=== PATIENT | female | born 1975 ===

== ENCOUNTER 2020-09-23 19:35 | Emergency (ER) | payer OTHER, SELFPAY ==
[2020-09-23 19:36] VITALS: BP 223/95; PULSE 78; RESP 20; TEMP 36.5; O2SAT 100; BMI 62.1
--- NOTE | 2020-09-23 19:51 | PC.NURSE ---
Pt ambulating to the bathroom with a andrade/steady gait, assisted into [facility]. Pt reports compliance with antihypertensives despite elevated BP.
[2020-09-23 20:25] VITALS: BP 183/96; PULSE 78; RESP 16; TEMP 36.6; O2SAT 98
--- NOTE | 2020-09-23 21:10 | ED_ITS ---
HPI - Abdominal Pain General Chief Complaint: Abdominal Pain Stated Complaint: abd pain Time Seen by Provider: 09/23/20 21:10 Source: patient Mode of arrival: ambulatory Limitations: no limitations History of Present Illness HPI narrative: epigastric pain and throat pain. Patient had vomiting and diarrhea 2 days ago. Patient states that the abdominal pain started today MD elicited complaint: abdominal pain Onset (ago): day(s) Pain Consistency: constant Location: epigastric Severity: mild Quality: aching Exacerbating factors: movement Related Data Previous Rx's Medication Instructions Recorded pantoprazole [Protonix] 40 mg PO DAILY #30 ea 09/23/20 Allergies Allergy/AdvReac Type Severity Reaction Status Date / Time No Known Allergies Allergy Unverified 07/29/20 15:33 Review of Systems Constitutional: Reports no additional constitutional complaints Eyes: Reports no additional eye complaints Denies dizziness Cardiovascular: Reports no additional cardiovascular complaints Respiratory: Reports as per HPI Gastrointestinal: Reports no additional gastrointestinal complaints Genitourinary: Reports no additional female genitourinary complaints Musculoskeletal: Reports no additional musculoskeletal complaints Skin/Breast: Denies rash Reports system reviewed and no additional complaints, except as documented, Denies dizziness and Denies Sensory deficit (Neuro) Psychiatric: Denies anxiety Physical Exam Vital Signs: Vital Signs: Last Vital Signs Temp 98.2 F 09/23/20 21:52 Pulse 78 09/23/20 21:52 Resp 18 09/23/20 21:52 BP 186/95 H 09/23/20 21:52 Pulse Ox 99 09/23/20 21:52 Body Mass Index 62.1 Const: Other: slightly tremulous female Nutritional Appearance: average body habitus Orientation/consciousness: oriented to person and patient oriented x3 Limitations: no limitations HENMT: Head: Yes normal to inspection Ears: external ears normal General nose exam: Normal external nose present Mouth: Normal oral and palatal mucosa present and oropharynx normal Throat: Yes posterior oropharynx normal Eyes: General: appearance normal, both eyes and all related structures Neck: Other: supple Neck: Yes normal visual inspection Chest: Chest palpation & inspection: normal inspection of the chest Resp: Auscultation: clear to auscultation bilaterally Cardio: Jugular venous distension: no JVD Rate: regular rate Rhythm: regular rhythm Heart sounds: S1 normal heart sound present and S2 normal heart sound present GI: Inspection: Yes normal to inspection Palpation (GI): Soft to palpation, nontender and No hepatosplenomegaly present Auscultation: normal bowel sounds : Other: rectal heme negative General: Yes no CVA tenderness Back/Spine/Pelvis: Back: no CVA tenderness Skin: General skin exam: no rashes or lesions noted Neuro: General: oriented to person and patient oriented x3 Cranial nerves: Yes CN's II-XII intact bilaterally Motor exam (neuro): 5/5 motor strength present throughout Sensory Exam: No Sensory deficit (Neuro) Extrem: General: Yes normal to inspection Psych: Appearance: grossly normal Course Course Course Narrative: On labs patient with chronic hepatitis likely secondary to alcohol, patient has had a small drop in HCT checked rectal, heme negative will dc on protonix MDM - Abdominal Pain Differential Diagnosis Differential diagnosis: Likely abdominal pain and gastritis Lab Data Result diagrams: 09/23/20 21:47 09/23/20 21:47 Labs: Lab Results 09/23/20 09/23/20 09/23/20 Range/Units 21:47 21:47 21:47 WBC 6.2 (4.8-10.8) X10*3/uL RBC 4.11 L (4.20-5.50) X10*6/uL Hgb 12.6 (12.0-16.0) g/dl Hct 36.9 L (37-47) % MCV 89.8 (80-98) fL MCH 30.7 (27.0-33.0) pg MCHC 34.1 (31.0-35.0) g/dl RDW 11.9 (11.0-16.0) % Plt Count 223 (160-400) X10*3/uL MPV 9.8 (9.4-12.3) fL Immature Gran % (Auto) 0.3 (0.0-0.4) % Neut % (Auto) 60.6 (45-73) % Lymph % (Auto) 23.4 (20-40) % Alexander % (Auto) 14.9 H (2-11) % Eos % (Auto) 0.5 (0-4) % Baso % (Auto) 0.3 (0-2) % Lymph # (Auto) 1.4 (1.2-4.9) X10*3/uL Alexander # (Auto) 0.9 (0.1-1.2) X10*3/uL Eos # (Auto) 0.0 (0.0-0.4) X10*3/uL Baso # (Auto) 0.0 (0.0-0.2) X10*3/uL Abs Immat Gran (auto) 0.02 (0.00-0.03) X10*3/uL Absolute Neuts (auto) 3.7 (2.0-8.3) X10*3/uL Absolute Nucleated RBC 0.000 (0.0-0.012) X10*3/uL Nucleated RBC % (auto) 0.0 (0.0-0.2) /100WBC Sodium 135 (135-145) mmol/L Potassium 3.7 (3.3-5.1) mmol/l Chloride 95 L (96-108) mmol/L Carbon Dioxide 30 H (22-29) mmol/L Anion Gap 14 (12-20) BUN 3 L (9-16) mg/dL Creatinine 0.67 (0.5-1.4) mg/dL Estim Creat Clear Calc 131.4 Estimated GFR > 60 Random Glucose 76 (60-115) mg/dL Calcium 9.7 (8.4-10.2) mg/dL Total Bilirubin 0.7 (0.0-1.0) mg/dL Direct Bilirubin 0.4 (0.0-0.5) mg/dL AST 45 H (5-31) U/L ALT 45 H (0-31) U/L Alkaline Phosphatase 98 (39-117) U/L Total Protein 7.3 (6.5-8.0) g/dL Albumin 3.6 (3.5-5.0) g/dL Lipase 105 H (8-78) U/L Urine Color YELLOW Urine Appearance CLEAR Urine pH 7.0 (5.0-8.0) Ur Specific [place] <= 1.005 (1.005-1.025) Urine Protein NEG (NEG-TRACE) MG/DL Urine Glucose (UA) NEG (NEG) MG/DL Urine Ketones NEG (NEG) MG/DL Urine Blood NEG (NEG) Urine Nitrite NEG (NEG) Ur Leukocyte Esterase NEG (NEG) Discharge Plan Discharge Clinical Impression: Gastritis Qualifiers: Gastritis type: unspecified gastritis Chronicity: acute Gastritis bleeding: without bleeding Qualified Code(s): K29.00 - Acute gastritis without bleeding Alcoholic hepatitis Qualifiers: Ascites presence: without ascites Qualified Code(s): K70.10 - Alcoholic hepatitis without ascites Patient Disposition: Home, Self-Care Instructions: Gastritis (ED) Prescriptions: New pantoprazole [Protonix] [address] for susp in packet 40 mg PO DAILY Qty: 30 RF: 0 Referrals: Damián Roberts MD [Primary Care Provider] - 2 days PMFSH Past Medical History Medical History Asthma Hypertension Hypothyroid Lupus Social History Social History Alcohol intake: current Alcohol intake frequency: a few times a month Alcohol type: beer and hard liquor Smoking Status: Never smoker Use of substances other than those prescribed or required for medical reasons: No Advance Directives: No Advance Directives Information Provided: No
[2020-09-23] MEDS: Magnesium Hydrox/Alum Hydrox 30 ML ORAL.SUSP PO (21:48)
[2020-09-23] MEDS: Pantoprazole Sodium 40 MG/10 ML VIAL IVPUSH (21:48)
[2020-09-23] MEDS: 0.9 % Sodium Chloride 500 ML 999 ML IVCONT (21:48)
[2020-09-23 21:52] VITALS: BP 186/95; PULSE 78; RESP 18; TEMP 36.8; O2SAT 99
[2020-09-23 21:55] LABS: Basophils Percent Auto 0.3 % (0-2); Eosinophils Percent Auto 0.5 % (0-4); Hematocrit 36.9 % (37-47); Hemoglobin 12.6 g/dl (12.0-16.0); Imm Gran Abs Auto 0.02 X10*3/uL (0.00-0.03); Imm Gran Pct Auto 0.3 % (0.0-0.4); Lymphocytes Absolute Auto 1.4 X10*3/uL (1.2-4.9); Lymphocytes Percent Auto 23.4 % (20-40); Mean Corpuscular HGB Conc 34.1 g/dl (31.0-35.0); Mean Corpuscular Hemoglobin 30.7 pg (27.0-33.0); Mean Corpuscular Volume 89.8 fL (80-98); Mean Platelet Volume 9.8 fL (9.4-12.3); Monocytes Absolute Auto 0.9 X10*3/uL (0.1-1.2); Monocytes Percent Auto 14.9 % (2-11); Neutrophils Absolute Auto 3.7 X10*3/uL (2.0-8.3); Neutrophils Percent Auto 60.6 % (45-73); Platelet Count 223 X10*3/uL (160-400); Red Blood Count 4.11 X10*6/uL (4.20-5.50); Red Cell Distribution Width 11.9 % (11.0-16.0); White Blood Count 6.2 X10*3/uL (4.8-10.8)
[2020-09-23 21:56] LABS: MANUAL DIFF FLAG NO
[2020-09-23 21:57] LABS: Appearance Urine CLEAR; Color Urine YELLOW; Glucose Urine UA NEG (NEG); Leukocyte Esterase Urine NEG (NEG); Nitrite Urine NEG (NEG); Specific Gravity - Urine <= 1.005 (1.005-1.025); Urine Blood NEG (NEG); Urine Ketones NEG (NEG); Urine Protein NEG (NEG-TRACE)
[2020-09-23 22:33] LABS: Alanine Aminotransferase 45 U/L (0-31); Albumin Level 3.6 g/dL (3.5-5.0); Alkaline Phosphatase 98 U/L (39-117); Anion Gap 14 (12-20); Aspartate Amino Transferase 45 U/L (5-31); Bilirubin Direct 0.4 mg/dL (0.0-0.5); Bilirubin Total 0.7 mg/dL (0.0-1.0); Blood Urea Nitrogen 3 mg/dL (9-16); Calcium 9.7 mg/dL (8.4-10.2); Carbon Dioxide 30 mmol/L (22-29); Chloride 95 mmol/L (96-108); Creatinine Clr Calc Pharmacy 131.4; Estimated Glomerular Filt Rate > 60; Glucose Random 76 mg/dL (60-115); Potassium 3.7 mmol/l (3.3-5.1); Sodium 135 mmol/L (135-145); Total Protein 7.3 g/dL (6.5-8.0)
[2020-09-23 22:43] LABS: Lipase 105 U/L (8-78)
[2020-09-23 23:27] VITALS: BP 162/92; PULSE 87; RESP 18; TEMP 37.7; O2SAT 98
--- NOTE | 2020-09-23 23:29 | PC.NURSE ---
maciej kim at bedside for re eval plan for d.c patient home
== END 2020-09-23 23:41 | disposition home or self-care (01) ==
PROVIDERS: Emergency Provider Emergency Medicine; PCP Internal Medicine
DX: K29.00 Acute gastritis without bleeding (principal); K70.10 Alcoholic hepatitis without ascites; R10.13 Epigastric pain; Z79.899 Other long term (current) drug therapy
CPT/HCPCS: 36415; 80048; 80076; 81003; 83690; 85025; 96361; 96374; 99284

== ENCOUNTER 2020-10-14 09:32 | Outpatient (REF) | payer OTHER, SELFPAY ==
--- NOTE | 2020-10-14 | US_ITS ---
EXAMINATION: US ABDOMEN COMPLETE CLINICAL INFORMATION: Elevated LFTs, fatty liver. COMPARISON: CT abdomen and pelvis without contrast dated 08/06/2016. Ultrasound abdomen complete dated 05/05/2014. TECHNIQUE: Real-time imaging of the abdominal viscera. FINDINGS: PANCREAS: The pancreas is heterogenous without any focal lesion or enlargement ABDOMINAL AORTA: The proximal, mid, and distal segments are normal in caliber. INFERIOR VENA CAVA: Visualized portions are normal. LIVER: The liver is diffusely echogenic with normal hepatic contours. No focal hepatic lesion. There is no intrahepatic biliary duct dilatation seen. GALLBLADDER: Normal. The gallbladder is physiologically distended without evidence of stones, sludge, polyps, wall thickening or pericholecystic fluid. COMMON BILE DUCT: Normal in caliber measuring 0.4 cm in diameter. RIGHT KIDNEY: Horseshoe kidney. No hydronephrosis. No renal calculi or focal parenchymal lesions. The kidney measures 9.5 cm in maximum dimension. LEFT KIDNEY: Horseshoe kidney extending to the left of uterus No hydronephrosis. No renal calculi or focal parenchymal lesions. The kidney measures 8.0 cm in maximum dimension. SPLEEN: Normal. The spleen measures 8.7 cm in maximum dimension. FREE FLUID: None. US/US abdomen complete IMPRESSION: 1. Partial kidneys without any echogenic stones or hydronephrosis. This was seen on CT abdomen and pelvis exam 08/06/2016. 2. Diffuse hepatic steatosis without focal lesion. 3. Mild heterogenous pancreas.
== END 2020-10-14 09:33 | disposition home or self-care (01) ==
LOC: HO.US 09:32
PROVIDERS: PCP Internal Medicine; Visit Provider Internal Medicine
DX: R94.5 Abnormal results of liver function studies (principal); K76.0 Fatty (change of) liver, not elsewhere classified
CPT/HCPCS: 76700

== ENCOUNTER 2021-08-11 15:13 | Outpatient (REF) | payer OTHER, SELFPAY ==
[2021-08-11 15:54] LABS: Influenza A PCR NEGATIVE (Negative); Influenza B PCR NEGATIVE (Negative); Resp Syncy Virus RNA Qual PCR NEGATIVE (Negative); SARS COV2 PCR INHOUSE NEGATIVE (Negative)
== END 2021-08-11 15:14 | disposition home or self-care (01) ==
LOC: HO.LNP 15:13
PROVIDERS: Visit Provider Internal Medicine
DX: R68.83 Chills (without fever) (principal); R42 Dizziness and giddiness; R11.10 Vomiting, unspecified; Z20.822 Contact with and (suspected) exposure to COVID-19
CPT/HCPCS: 0241U

== ENCOUNTER 2021-10-13 23:18 | Emergency (ER) | payer OTHER, SELFPAY ==
[2021-10-13 23:21] VITALS: BP 192/93; PULSE 117; RESP 16; TEMP 36.4; O2SAT 100; BMI 21.3
--- NOTE | 2021-10-14 00:05 | ED_ITS ---
HPI - Abdominal Pain General Chief Complaint: Abdominal Pain Stated Complaint: Abd pain Time Seen by Provider: 10/13/21 23:23 Source: patient and old records reviewed Mode of arrival: ambulatory Limitations: no limitations History of Present Illness MD elicited complaint: abdominal pain Pertinent past history: other (hx of liver issues stomach pain when she drinks ETOH) Onset (ago): hour(s) (started at 8pm tonight after she drank her 3rd beer) Pain Consistency: constant Location: epigastric Severity: moderate Quality: cramping Radiation: none Migration to: no migration Exacerbating factors: other (alcohol) Relieving factors: nothing Context: history of similar episodes Associated symptoms: nausea Related Data Previous Rx's Medication Instructions Recorded pantoprazole 40 mg granules 40 mg PO DAILY #30 ea 09/23/20 delayed-release for susp in packet (Protonix) Allergies Allergy/AdvReac Type Severity Reaction Status Date / Time No Known Allergies Allergy Unverified 07/29/20 15:33 Review of Systems Review of Systems Constitutional : No Weight loss, No Fever, No Chills ENT/Mouth : No sore throat, No Rhinorrhea Eyes: No Swelling, No Redness Cardiovascular : No Chest Pain, No SOB, NoEdema Respiratory : No Cough, No Sputum, No Wheezing Gastrointestinal : Positive Nausea, no Vomiting, no Diarrhea, positive abdominal Pain, No Hematochezia, No Melena Genitourinary : No Dysuria, No Urinary Frequency, No Hematuria, No Urgency Musculoskeletal : No joint pain, No Myalgias, No Joint Swelling Skin : No Skin Lesions, No rash Neuro : No Weakness, No Numbness, No Dizziness, No Headache Psych : No Anxiety/Panic, No Depression Heme/Lymph: No Bruising, No Lymphadenopathy Endocrine : No Polyuria, No Polydipsia All other systems reviewed and are negative. Physical Exam Vital Signs: Vital Signs: Last Vital Signs Temp 97.5 F 10/13/21 23:21 Pulse 67 10/14/21 02:00 Resp 18 10/14/21 02:00 BP 152/85 H 10/14/21 02:00 Pulse Ox 96 10/14/21 02:00 BMI result Body Mass Index 21.3 Appearance: Alert. Oriented X3. No acute distress. Eyes: Pupils equal, round and reactive to light. ENT: Pharynx normal. Neck: Normal inspection. Neck supple. CVS: Normal heart rate and rhythm. Pulses normal. Respiratory: No respiratory distress. Breath sounds normal. Abdomen: Soft and mild epigastric ttp no rebound or guarding Skin: Skin warm and dry. Normal skin color. Normal skin turgor. Extremities: No lower extremity edema. No calf ttp Neuro: Oriented X 3. No motor deficit. No sensory deficit. Course Course Course Narrative: replete magnesium Na low likely ETOH will hydrate and recheck LFTs and lipase lower than baseline patient only given 1L of fluids - doubt any sig issues, baseline Na 131 - stable for DC feels better MDM - Abdominal Pain MDM Narrative Medical decision making narrative: 46 yo female with hx of HTN (she is HTNive here with c/o not taking her BP medications today) hx of gastritis notes she drank 3 beers today and developed nausea and epigastric pain at this time will give her home medications, IVF, zofran/pepcid and obtain LFTs and lipase. Dispo per results and findings. Lab Data Result diagrams: 10/14/21 00:41 10/14/21 03:15 Labs: Lab Results 10/14/21 10/14/21 10/14/21 Range/Units 00:41 00:41 00:41 WBC 4.9 (4.8-10.8) X10*3/uL RBC 3.54 L (4.20-5.50) X10*6/uL Hgb 11.4 L (12.0-16.0) g/dl Hct 32.0 L (37.0-47.0) % MCV 90.4 (80.0-98.0) fL MCH 32.2 (27.0-33.0) pg MCHC 35.6 H (31.0-35.0) g/dl RDW 11.4 (11.0-16.0) % Plt Count 233 (160-400) X10*3/uL MPV 9.2 L (9.4-12.3) fL Immature Gran % (Auto) 0.2 (0.0-0.4) % Neut % (Auto) 29.6 L (45-73) % Lymph % (Auto) 48.7 H (20-40) % Cherry % (Auto) 20.7 H (2-11) % Eos % (Auto) 0.4 (0-4) % Baso % (Auto) 0.4 (0-2) % Lymph # (Auto) 2.4 (1.2-4.9) X10*3/uL Cherry # (Auto) 1.0 (0.1-1.2) X10*3/uL Eos # (Auto) 0.0 (0.0-0.4) X10*3/uL Baso # (Auto) 0.0 (0.0-0.2) X10*3/uL Abs Immat Gran (auto) 0.01 (0.00-0.03) X10*3/uL Absolute Neuts (auto) 1.5 L (2.0-8.3) x10*3/uL Absolute Nucleated RBC 0.000 (0.0-0.012) X10*3/uL Nucleated RBC % (auto) 0.0 (0.0-0.2) /100WBC Smear Tech's Comments VERIFIED Sodium 126 L (135-145) mmol/L Potassium 3.5 (3.3-5.1) mmol/L Chloride 91 L (96-108) mmol/L Carbon Dioxide 24 (22-29) mmol/L Anion Gap 15 (12-20) BUN 4 L (9-16) mg/dL Creatinine 0.70 (0.5-1.4) mg/dL Estim Creat Clear Calc 64.8 Estimated GFR > 60 Random Glucose 82 (60-115) mg/dL Calcium 9.7 (8.4-10.2) mg/dL Magnesium 1.5 L (1.6-2.6) mg/dL Total Bilirubin 0.6 (0.0-1.0) mg/dL Direct Bilirubin 0.2 (0.0-0.5) mg/dL AST 46 H (5-31) U/L ALT 29 (0-31) U/L Alkaline Phosphatase 72 D (39-117) U/L Total Protein 7.7 (6.5-8.0) g/dL Albumin 3.8 (3.5-5.0) g/dL Lipase 85 H (8-78) U/L Urine Color Urine Appearance Urine pH (5.0-8.0) Ur Specific [place] (1.005-1.025) Urine Protein (NEG-TRACE) MG/DL Urine Glucose (UA) (NEG) MG/DL Urine Ketones (NEG) MG/DL Urine Blood (NEG) Urine Nitrite (NEG) Ur Leukocyte Esterase (NEG) Urine Opiates Screen (Not Detect) Urine Fentanyl Screen (Not Detect) Ur Barbiturates Screen (Not Detect) Ur Phencyclidine Scrn (Not Detect) Ur Amphetamines Screen (Not Detect) U Benzodiazepines Scrn (Not Detect) Urine Cocaine Screen (Not Detect) U Marijuana (THC) Screen (Not Detect) Ethyl Alcohol mg/dL COVID-19 ([facility]) Negative (Negative) COVID-19 Clin Com See Note 10/14/21 10/14/21 10/14/21 Range/Units 00:41 02:04 02:04 WBC (4.8-10.8) X10*3/uL RBC (4.20-5.50) X10*6/uL Hgb (12.0-16.0) g/dl Hct (37.0-47.0) % MCV (80.0-98.0) fL MCH (27.0-33.0) pg MCHC (31.0-35.0) g/dl RDW (11.0-16.0) % Plt Count (160-400) X10*3/uL MPV (9.4-12.3) fL Immature Gran % (Auto) (0.0-0.4) % Neut % (Auto) (45-73) % Lymph % (Auto) (20-40) % Cherry % (Auto) (2-11) % Eos % (Auto) (0-4) % Baso % (Auto) (0-2) % Lymph # (Auto) (1.2-4.9) X10*3/uL Cherry # (Auto) (0.1-1.2) X10*3/uL Eos # (Auto) (0.0-0.4) X10*3/uL Baso # (Auto) (0.0-0.2) X10*3/uL Abs Immat Gran (auto) (0.00-0.03) X10*3/uL Absolute Neuts (auto) (2.0-8.3) x10*3/uL Absolute Nucleated RBC (0.0-0.012) X10*3/uL Nucleated RBC % (auto) (0.0-0.2) /100WBC Smear Tech's Comments Sodium (135-145) mmol/L Potassium (3.3-5.1) mmol/L Chloride (96-108) mmol/L Carbon Dioxide (22-29) mmol/L Anion Gap (12-20) BUN (9-16) mg/dL Creatinine (0.5-1.4) mg/dL Estim Creat Clear Calc Estimated GFR Random Glucose (60-115) mg/dL Calcium (8.4-10.2) mg/dL Magnesium (1.6-2.6) mg/dL Total Bilirubin (0.0-1.0) mg/dL Direct Bilirubin (0.0-0.5) mg/dL AST (5-31) U/L ALT (0-31) U/L Alkaline Phosphatase (39-117) U/L Total Protein (6.5-8.0) g/dL Albumin (3.5-5.0) g/dL Lipase (8-78) U/L Urine Color STRAW Urine Appearance CLEAR Urine pH 7.0 (5.0-8.0) Ur Specific [place] <= 1.005 (1.005-1.025) Urine Protein NEG (NEG-TRACE) MG/DL Urine Glucose (UA) NEG (NEG) MG/DL Urine Ketones NEG (NEG) MG/DL Urine Blood NEG (NEG) Urine Nitrite NEG (NEG) Ur Leukocyte Esterase NEG (NEG) Urine Opiates Screen Not Detected (Not Detect) Urine Fentanyl Screen Not Detected (Not Detect) Ur Barbiturates Screen Not Detected (Not Detect) Ur Phencyclidine Scrn Not Detected (Not Detect) Ur Amphetamines Screen Not Detected (Not Detect) U Benzodiazepines Scrn Not Detected (Not Detect) Urine Cocaine Screen Not Detected (Not Detect) U Marijuana (THC) Screen Not Detected (Not Detect) Ethyl Alcohol 194 mg/dL COVID-19 ([facility]) (Negative) COVID-19 Clin Com 10/14/21 Range/Units 03:15 WBC (4.8-10.8) X10*3/uL RBC (4.20-5.50) X10*6/uL Hgb (12.0-16.0) g/dl Hct (37.0-47.0) % MCV (80.0-98.0) fL MCH (27.0-33.0) pg MCHC (31.0-35.0) g/dl RDW (11.0-16.0) % Plt Count (160-400) X10*3/uL MPV (9.4-12.3) fL Immature Gran % (Auto) (0.0-0.4) % Neut % (Auto) (45-73) % Lymph % (Auto) (20-40) % Cherry % (Auto) (2-11) % Eos % (Auto) (0-4) % Baso % (Auto) (0-2) % Lymph # (Auto) (1.2-4.9) X10*3/uL Cherry # (Auto) (0.1-1.2) X10*3/uL Eos # (Auto) (0.0-0.4) X10*3/uL Baso # (Auto) (0.0-0.2) X10*3/uL Abs Immat Gran (auto) (0.00-0.03) X10*3/uL Absolute Neuts (auto) (2.0-8.3) x10*3/uL Absolute Nucleated RBC (0.0-0.012) X10*3/uL Nucleated RBC % (auto) (0.0-0.2) /100WBC Smear Tech's Comments Sodium 133 L (135-145) mmol/L Potassium (3.3-5.1) mmol/L Chloride (96-108) mmol/L Carbon Dioxide (22-29) mmol/L Anion Gap (12-20) BUN (9-16) mg/dL Creatinine (0.5-1.4) mg/dL Estim Creat Clear Calc Estimated GFR Random Glucose (60-115) mg/dL Calcium (8.4-10.2) mg/dL Magnesium (1.6-2.6) mg/dL Total Bilirubin (0.0-1.0) mg/dL Direct Bilirubin (0.0-0.5) mg/dL AST (5-31) U/L ALT (0-31) U/L Alkaline Phosphatase (39-117) U/L Total Protein (6.5-8.0) g/dL Albumin (3.5-5.0) g/dL Lipase (8-78) U/L Urine Color Urine Appearance Urine pH (5.0-8.0) Ur Specific [place] (1.005-1.025) Urine Protein (NEG-TRACE) MG/DL Urine Glucose (UA) (NEG) MG/DL Urine Ketones (NEG) MG/DL Urine Blood (NEG) Urine Nitrite (NEG) Ur Leukocyte Esterase (NEG) Urine Opiates Screen (Not Detect) Urine Fentanyl Screen (Not Detect) Ur Barbiturates Screen (Not Detect) Ur Phencyclidine Scrn (Not Detect) Ur Amphetamines Screen (Not Detect) U Benzodiazepines Scrn (Not Detect) Urine Cocaine Screen (Not Detect) U Marijuana (THC) Screen (Not Detect) Ethyl Alcohol mg/dL COVID-19 ([facility]) (Negative) COVID-19 Clin Com Discharge Plan Discharge Clinical Impression: Hypomagnesemia, Acute hyponatremia Acute alcoholic gastritis Qualifiers: Gastritis bleeding: without bleeding Qualified Code(s): K29.20 - Alcoholic gastritis without bleeding Patient Disposition: Home, Self-Care Instructions: Gastritis (ED), Hyponatremia (ED), Hypomagnesemia (ED) Additional Instructions: return to ED for any worsening symptoms or concerns STOP DRINKING Prescriptions: No Action pantoprazole [Protonix] [address] for susp in packet 40 mg PO DAILY Qty: 30 RF: 0 Stand Alone Forms: Work/School Release [facility] Past Medical History Attestation statement: The following information was validated with the patient. Medical History Asthma Hypertension Hypothyroid Lupus Social History Social History (Updated 10/14/21 @ 00:06 by Moraima Barraza DO) Alcohol intake: current Alcohol intake frequency: a few times a month Alcohol type: beer and hard liquor Patient Tobacco Use Status: Never used Tobacco Advance Directives: No Advance Directives Information Provided: No
[2021-10-14 00:47] VITALS: BP 167/100; PULSE 60
[2021-10-14] MEDS: Famotidine/PF 20 MG/2 ML VIAL IVPUSH (00:47)
[2021-10-14] MEDS: hydrALAZINE HCl 10 MG TABLET PO (00:47)
[2021-10-14] MEDS: ondansetron HCL 4 MG/2 ML VIAL IVPUSH (00:47)
[2021-10-14] MEDS: 0.9 % Sodium Chloride 1,000 ML 999 ML IVCONT (00:47)
[2021-10-14 00:51] LABS: Basophils Percent Auto 0.4 % (0-2); Eosinophils Percent Auto 0.4 % (0-4); Hemoglobin 11.4 g/dl (12.0-16.0); Imm Gran Abs Auto 0.01 X10*3/uL (0.00-0.03); Imm Gran Pct Auto 0.2 % (0.0-0.4); Lymphocytes Absolute Auto 2.4 X10*3/uL (1.2-4.9); Lymphocytes Percent Auto 48.7 % (20-40); MANUAL DIFF FLAG SCAN; Mean Corpuscular HGB Conc 35.6 g/dl (31.0-35.0); Mean Corpuscular Hemoglobin 32.2 pg (27.0-33.0); Mean Corpuscular Volume 90.4 fL (80.0-98.0); Mean Platelet Volume 9.2 fL (9.4-12.3); Monocytes Percent Auto 20.7 % (2-11); Neutrophils Absolute Auto 1.5 x10*3/uL (2.0-8.3); Neutrophils Percent Auto 29.6 % (45-73); Platelet Count 233 X10*3/uL (160-400); Red Blood Count 3.54 X10*6/uL (4.20-5.50); Red Cell Distribution Width 11.4 % (11.0-16.0); SCAN SMEAR FLAG 1; White Blood Count 4.9 X10*3/uL (4.8-10.8)
[2021-10-14 00:54] VITALS: BP 188/105; PULSE 58
[2021-10-14 01:02] LABS: Ethanol 194 mg/dL
[2021-10-14 01:05] LABS: Alanine Aminotransferase 29 U/L (0-31); Albumin Level 3.8 g/dL (3.5-5.0); Alkaline Phosphatase 72 U/L (39-117); Anion Gap 15 (12-20); Aspartate Amino Transferase 46 U/L (5-31); Bilirubin Direct 0.2 mg/dL (0.0-0.5); Bilirubin Total 0.6 mg/dL (0.0-1.0); Blood Urea Nitrogen 4 mg/dL (9-16); COVID-19 Test Negative (Negative); Calcium 9.7 mg/dL (8.4-10.2); Carbon Dioxide 24 mmol/L (22-29); Chloride 91 mmol/L (96-108); Creatinine Clr Calc Pharmacy 64.8; Estimated Glomerular Filt Rate > 60; Glucose Random 82 mg/dL (60-115); Lipase 85 U/L (8-78); Magnesium 1.5 mg/dL (1.6-2.6); Potassium 3.5 mmol/L (3.3-5.1); Sodium 126 mmol/L (135-145); Total Protein 7.7 g/dL (6.5-8.0)
[2021-10-14 01:13] VITALS: BP 176/99; PULSE 64; RESP 15; O2SAT 100
[2021-10-14 01:15] LABS: SLIDE REVIEW VERIFIED
[2021-10-14] MEDS: Magnesium Sulfate/H2O 2 GM/50 ML PIGGYBACK IV (01:17)
[2021-10-14 01:37] VITALS: BP 164/86; PULSE 62; RESP 16; O2SAT 100
[2021-10-14 02:00] VITALS: BP 152/85; PULSE 67; RESP 18; O2SAT 96
[2021-10-14 02:13] LABS: Appearance Urine CLEAR; Color Urine STRAW; Glucose Urine UA NEG (NEG); Leukocyte Esterase Urine NEG (NEG); Nitrite Urine NEG (NEG); Specific Gravity - Urine <= 1.005 (1.005-1.025); Urine Blood NEG (NEG); Urine Ketones NEG (NEG); Urine Protein NEG (NEG-TRACE)
[2021-10-14 02:30] LABS: Amphetamine Screen Urine Not Detected (Not Detect); Barbiturates, Urine Not Detected (Not Detect); Benzodiazepines Screen Urine Not Detected (Not Detect); Cannabinoid Screen Urine Not Detected (Not Detect); Cocaine Screen Urine Not Detected (Not Detect); Fentanyl, urine Not Detected (Not Detect); Opiate Screen Urine Not Detected (Not Detect); Phencyclidine Screen Urine Not Detected (Not Detect)
[2021-10-14 03:39] LABS: Sodium 133 mmol/L (135-145)
== END 2021-10-14 04:44 | disposition home or self-care (01) ==
PROVIDERS: Emergency Provider Emergency Medicine; PCP Internal Medicine
DX: K29.20 Alcoholic gastritis without bleeding (principal); E83.42 Hypomagnesemia; E87.1 Hypo-osmolality and hyponatremia; I10 Essential (primary) hypertension; Z79.899 Other long term (current) drug therapy; Z20.822 Contact with and (suspected) exposure to COVID-19
CPT/HCPCS: 36415; 80048; 80076; 80307; 81003; 82077; 83690; 83735; 84295; 85025; 87635; 96361; 96365; 96366; 96375; 99284; J2405; J3475

== ENCOUNTER 2022-08-16 14:06 | Inpatient (IN) | payer OTHER, SELFPAY ==
--- NOTE | ~2022-08-16 | US_ITS ---
EXAMINATION: US ABDOMEN LIMITED CLINICAL INFORMATION: epigastric/ruq pain, hx cirrhosis, f/up CT A/P . COMPARISON: CT from the same date and ultrasound dated 10/14/2020 TECHNIQUE: Real-time imaging of the right upper quadrant abdominal viscera. FINDINGS: PANCREAS: Normal. LIVER: Homogeneously increased attenuation throughout the hepatic parenchyma is consistent with steatosis. The liver is normal in size. The liver contour is normal. No focal hepatic lesion. There is no intrahepatic biliary duct dilatation seen. Trace perihepatic free fluid. GALLBLADDER: There is a small amount of pericholecystic fluid between the liver and gallbladder wall. Gallbladder wall is normal in thickness. No gallstones. No sonographic Steward's sign. COMMON BILE DUCT: Normal in caliber measuring 0.4 cm in diameter. 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 Cortical thickness is normal. No hydronephrosis. No calculi are identified. FREE FLUID: None. US/US abdomen limited IMPRESSION: 1. No cholelithiasis or other convincing findings of acute cholecystitis. Small amount of pericholecystic fluid is likely related to a separate process. 2. Hepatic steatosis.
--- NOTE | ~2022-08-16 | CT_ITS ---
EXAMINATION: CT ABDOMEN AND PELVIS WITH CONTRAST CLINICAL INFORMATION: Diffuse abdominal pain, elevated LFTs COMPARISON: 08/06/2016 TECHNIQUE: Multidetector volumetric images were obtained from the superior aspect of the liver through the pubic symphysis following administration 85 mL of Omnipaque 350 intravenous contrast. Sagittal and coronal reformatted images were obtained on the technologist's workstation. Oral contrast: No This CT examination was performed using dose optimization techniques as appropriate, variously including the following: *Automated exposure control *Adjustment of mA and/or kV according to patient size (this includes techniques or standardized protocols for targeted exams where dose is matched to indication/reason for exam; i.e. extremities or head) *Use of iterative reconstruction technique DLP: 308 mGy-cm FINDINGS: LUNG BASES: Subsegmental bibasilar atelectasis. LIVER, GALLBLADDER, AND BILIARY TREE: The liver demonstrates hypoattenuation suggesting steatosis. No focal hepatic lesion or biliary ductal dilatation is present. The gallbladder is physiologically distended. There is prominent enhancement of the gallbladder wall with adjacent haziness laterally. No densely calcified gallstones are seen. PANCREAS: Unremarkable. SPLEEN: Unremarkable. ADRENAL GLANDS: Unremarkable. 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 No hydronephrosis or obstructing calculus identified. BLADDER: Mildly distended with diffusely thick-walled appearance. GASTROINTESTINAL TRACT: No evidence of bowel obstruction. There is mild colonic diverticulosis without diverticulitis. No significant bowel wall thickening is seen. The appendix is unremarkable. No free fluid or free air is seen. ABDOMINAL WALL: No significant hernia is appreciated. LYMPH NODES: Normal. VASCULAR: Unremarkable. PELVIC VISCERA: There is a 2.8 cm mildly hypodense left adnexal structure measuring greater than simple fluid density. Fibroid suspected anteriorly at the uterine fundus. OSSEOUS STRUCTURES: Unremarkable. CT/CT abdomen pelvis w IV con IMPRESSION: 1. Mildly prominent gallbladder wall with adjacent haziness. Developing cholecystitis cannot be excluded, and correlation with ultrasound is recommended. 2. Thick-walled appearance of the partially distended urinary bladder, which may be due to cystitis. Correlation with urinalysis is recommended. 3. Mildly hypodense 2.8 cm structure in the left adnexa, suggestive of a complex ovarian cyst, which may be hemorrhagic. Follow-up pelvic ultrasound would be helpful to assess for resolution.
[2022-08-16 15:37] VITALS: BP 110/69; PULSE 114; RESP 18; TEMP 36.4; O2SAT 100; BMI 22.4
--- NOTE | 2022-08-16 15:42 | ECG_ITS ---
Test Reason : DIZZINESS Blood Pressure : / mmHG Vent. Rate : 107 BPM Atrial Rate : 107 BPM P-R Int : 160 ms QRS Dur : 080 ms QT Int : 350 ms P-R-T Axes : 068 -39 049 degrees QTc Int : 467 ms Sinus tachycardia Left axis deviation Minimal voltage criteria for LVH, may be normal variant ( [place] product ) Abnormal ECG When compared with ECG of 06-AUG-2016 22:07, Heart rate has increased QRS axis Shifted left Referred By: Generic ED Physician Electronically Signed By:JAVID HAIRSTON
[2022-08-16 16:13] LABS: Imm Gran Abs Auto 0.04 X10*3/uL (0.00-0.03); Lymphocytes Absolute Auto 0.2 X10*3/uL (1.2-4.9); Lymphocytes Percent Auto 1.7 % (20-40); Mean Platelet Volume 10.1 fL (9.4-12.3); PLT CLUMP 1; SCAN SMEAR FLAG 1
[2022-08-16 16:15] LABS: Basophils Percent Auto 0.3 % (0-2); Eosinophils Percent Auto 0.1 % (0-4); Hematocrit 38.4 % (37.0-47.0); Hemoglobin 13.1 g/dl (12.0-16.0); Imm Gran Pct Auto 0.5 % (0.0-0.4); MANUAL DIFF FLAG SCAN; Mean Corpuscular HGB Conc 34.1 g/dl (31.0-35.0); Mean Corpuscular Hemoglobin 31.1 pg (27.0-33.0); Mean Corpuscular Volume 91.2 fL (80.0-98.0); Monocytes Percent Auto 0.5 % (2-11); Neutrophils Absolute Auto 8.5 x10*3/uL (2.0-8.3); Neutrophils Percent Auto 96.9 % (45-73); Red Blood Count 4.21 X10*6/uL (4.20-5.50); Red Cell Distribution Width 11.5 % (11.0-16.0)
[2022-08-16 16:36] LABS: Troponin-I High Sensitivity 5.3 ng/L (<3.5-17.0)
[2022-08-16 16:39] LABS: Albumin Level 3.5 g/dL (3.5-5.0); Anion Gap 22 (12-20); Bilirubin Total 4.1 mg/dL (0.0-1.0); Blood Urea Nitrogen 11 mg/dL (9-16); Carbon Dioxide 20 mmol/L (22-29); Chloride 93 mmol/L (96-108); Creatinine Clr Calc Pharmacy 26.1; Estimated Glomerular Filt Rate 32; Glucose Random 78 mg/dL (60-115); Potassium 3.8 mmol/L (3.3-5.1); Sodium 131 mmol/L (135-145); Total Protein 7.5 g/dL (6.5-8.0)
[2022-08-16 16:43] LABS: Platelet Count 133 X10*3/uL (160-400); White Blood Count 8.7 X10*3/uL (4.8-10.8)
[2022-08-16 16:44] LABS: SLIDE REVIEW VERIFIED
[2022-08-16 16:59] LABS: Alanine Aminotransferase 1585 U/L (0-31); Alkaline Phosphatase 223 U/L (39-117); Aspartate Amino Transferase 17138 U/L (5-31)
[2022-08-16 19:58] VITALS: BP 104/55; PULSE 115; RESP 19; TEMP 37.4; O2SAT 99
--- NOTE | 2022-08-16 22:23 | ED_ITS ---
HPI - General Adult General Chief complaint: Dizziness Stated complaint: dizzy abd pain Time Seen by Provider: 08/16/22 22:07 Source: patient Mode of arrival: ambulatory Limitations: no limitations History of Present Illness HPI narrative: Patient comes to the emergency room complaining of 3 days of lightheadedness, chills, epigastric and right upper quadrant pain. Patient states that she drinks heavily alcohol. Patient denies any nausea vomiting or diarrhea. Patient complaining of generalized weakness as well. Patient denies any URI or UTI symptoms Related Data Previous Rx's Medication Instructions Recorded pantoprazole 40 mg granules 40 mg PO DAILY #30 ea 09/23/20 delayed-release for susp in packet (Protonix) Allergies Allergy/AdvReac Type Severity Reaction Status Date / Time No Known Allergies Allergy Unverified 07/29/20 15:33 Review of Systems Review of Systems: Constitutional : No Weight loss, No Fever, complaining of Chills, No Night Sweats, complaining of fatigue, generalized malaise ENT/Mouth : No Hearing loss, No Ear Pain, No Nasal Congestion, No Sinus Pain, No Hoarseness, No sore throat, No Rhinorrhea, No Swallowing Difficulty Eyes: No Eye Pain, No Swelling, No Redness, No Foreign Body, No Discharge, No Vision Changes Cardiovascular : No Chest Pain, No SOB, No Dyspnea on Exertion, No Orthopnea, No Edema, No Palpitations Respiratory : No Cough, No Sputum, No Wheezing, No Smoke Exposure, No Dyspnea Gastrointestinal : No Nausea, No Vomiting, No Diarrhea, No Constipation, complaining of epigastric/right upper quadrant pain, no hematochezia Genitourinary : no irregular bleeding, No Dysuria, No Urinary Frequency, No Hematuria, No Urinary Incontinence, No Urgency, No Flank Pain, No Urinary Flow Changes, No Hesitancy Musculoskeletal : No joint pain, No Myalgias, No Joint Swelling Skin : No Skin Lesions, No rash Neuro : No Weakness, No Numbness, No Paresthesias, No Loss of Consciousness, No Dizziness, No Headache Psych : No Anxiety/Panic, No Depression, No SI/HI/AH/VH, No Social Issues, Heme/Lymph: No Bruising, No Bleeding,No Lymphadenopathy Endocrine : No Polyuria, No Polydipsia, No Temperature Intolerance PMFSH Past Medical History Medical History Alcohol abuse Asthma Cirrhosis Hypertension Hypothyroid Lupus Social History Social History (Updated 10/14/21 @ 00:06 by Koki Barraza DO) Alcohol intake: current Alcohol intake frequency: a few times a month Alcohol type: beer and hard liquor Patient Tobacco Use Status: Never used Tobacco Advance Directives: No Physical Exam ED Vital Signs: Vital Signs - 24 hr 08/16/22 15:37 08/16/22 19:58 Temperature 97.5 F 99.3 F Pulse Rate 114 H 115 H Respiratory Rate 18 19 Blood Pressure 110/69 104/55 L Pulse Oximetry 100 99 Oxygen Delivery Method Room Air Room Air BMI result Body Mass Index 22.4 Const Other: Appearance: Alert. Oriented X3. No acute distress. Eyes: Pupils equal, round and reactive to light. Scleral icterus ENT: Pharynx normal. Neck: Normal inspection. Neck supple. No lymph nodes noted. No crepitus CVS: Normal heart rate and rhythm. Pulses normal. Normal S1 and S2 Respiratory: No respiratory distress. Breath sounds normal. No Wheezing. No ra les Abdomen: Soft tenderness to palpation in epigastric and right upper quadrant pain, no rigidity Skin: Skin warm and dry. Jaundiced Extremities: No lower extremity edema. No Lacerations. No Rash Neuro: Oriented X 3. No motor deficit. No sensory deficit. Moving all extremities. No slurred speech. CN 2 through 12 grossly intact Psych: calm, cooperative, normal affect Course Course Course Narrative: Patient's labs were obtained which she was in the waiting room. Patient has very elevated LFTs 23:30, patient's CT scan shows possible acute cholecystitis. Ultrasound is pending. Patient was given 2 L of normal saline and ceftriaxone as empiric treatment. At this time sepsis is not suspected. CT scan and ultrasound of the liver are not showing any reason why patient's LFTs are elevated. It is possible that patient may have acute hepatitis, serology pending versus Tylenol toxicity. Patient states that she has been taking 400 mg every 4 hours for approximately 1 week for the constant right upper quadrant pain that she has been experiencing. I discussed the patient's labs and imaging with Dr. Bullock, at this time, patient's acetaminophen level is slightly elevated. However, given the patient's history, recommendations are to start Mucomyst IV and p.o. prednisolone I discussed the patient also with Dr. Maldonado, the LFTs need to be followed. If the LFTs keep increasing, it is possible the patient may need to be transferred to tertiary care hospital Patient states that the last time she drank alcohol was the night of August 13 and August 14. Patient states that she drinks sometimes 4-5 days in a row. At this time, patient has no signs or symptoms of alcohol withdrawal. Medical Decision Making Lab Data Result diagrams: 08/16/22 16:00 08/16/22 16:00 Labs: Lab Results 08/16/22 08/16/22 08/16/22 Range/Units 16:00 16:00 16:00 WBC 8.7 (4.8-10.8) X10*3/uL RBC 4.21 (4.20-5.50) X10*6/uL Hgb 13.1 (12.0-16.0) g/dl Hct 38.4 (37.0-47.0) % MCV 91.2 (80.0-98.0) fL MCH 31.1 (27.0-33.0) pg MCHC 34.1 (31.0-35.0) g/dl RDW 11.5 (11.0-16.0) % Plt Count 133 L D (160-400) X10*3/uL MPV 10.1 (9.4-12.3) fL Immature Gran % (Auto) 0.5 H (0.0-0.4) % Neut % (Auto) 96.9 H (45-73) % Lymph % (Auto) 1.7 L (20-40) % Rosebud % (Auto) 0.5 L (2-11) % Eos % (Auto) 0.1 (0-4) % Baso % (Auto) 0.3 (0-2) % Lymph # (Auto) 0.2 L (1.2-4.9) X10*3/uL Rosebud # (Auto) 0.0 L (0.1-1.2) X10*3/uL Eos # (Auto) 0.0 (0.0-0.4) X10*3/uL Baso # (Auto) 0.0 (0.0-0.2) X10*3/uL Abs Immat Gran (auto) 0.04 H (0.00-0.03) X10*3/uL Absolute Neuts (auto) 8.5 H (2.0-8.3) x10*3/uL Absolute Nucleated RBC 0.000 (0.0-0.012) X10*3/uL Nucleated RBC % (auto) 0.0 (0.0-0.2) /100WBC Smear Tech's Comments VERIFIED PT (10.0-13.1) SEC INR (0.9-1.1) APTT (26.0-36.4) SEC Sodium 131 L (135-145) mmol/L Potassium 3.8 (3.3-5.1) mmol/L Chloride 93 L (96-108) mmol/L Carbon Dioxide 20 L (22-29) mmol/L Anion Gap 22 H (12-20) BUN 11 D (9-16) mg/dL Creatinine 1.72 H (0.5-1.4) mg/dL Estim Creat Clear Calc 26.1 Estimated GFR 32 Random Glucose 78 (60-115) mg/dL Calcium 9.0 D (8.4-10.2) mg/dL Total Bilirubin 4.1 H (0.0-1.0) mg/dL AST 89893 H (5-31) U/L ALT 1585 H (0-31) U/L Alkaline Phosphatase 223 H D (39-117) U/L Troponin I High Sens 5.3 (<3.5-17.0) ng/L Total Protein 7.5 (6.5-8.0) g/dL Albumin 3.5 (3.5-5.0) g/dL Lipase 351 H (8-78) U/L Beta HCG, Quant 5 mIU/mL Urine Opiates Screen (Not Detect) Urine Fentanyl Screen (Not Detect) Acetaminophen (<30) mcg/mL Ur Barbiturates Screen (Not Detect) Ur Phencyclidine Scrn (Not Detect) Ur Amphetamines Screen (Not Detect) U Benzodiazepines Scrn (Not Detect) Urine Cocaine Screen (Not Detect) U Marijuana (THC) Screen (Not Detect) Ethyl Alcohol mg/dL COVID-19 (ALIA) (Negative) COVID-19 Clin Com 08/16/22 08/16/22 08/16/22 Range/Units 22:32 22:32 23:19 WBC (4.8-10.8) X10*3/uL RBC (4.20-5.50) X10*6/uL Hgb (12.0-16.0) g/dl Hct (37.0-47.0) % MCV (80.0-98.0) fL MCH (27.0-33.0) pg MCHC (31.0-35.0) g/dl RDW (11.0-16.0) % Plt Count (160-400) X10*3/uL MPV (9.4-12.3) fL Immature Gran % (Auto) (0.0-0.4) % Neut % (Auto) (45-73) % Lymph % (Auto) (20-40) % Rosebud % (Auto) (2-11) % Eos % (Auto) (0-4) % Baso % (Auto) (0-2) % Lymph # (Auto) (1.2-4.9) X10*3/uL Rosebud # (Auto) (0.1-1.2) X10*3/uL Eos # (Auto) (0.0-0.4) X10*3/uL Baso # (Auto) (0.0-0.2) X10*3/uL Abs Immat Gran (auto) (0.00-0.03) X10*3/uL Absolute Neuts (auto) (2.0-8.3) x10*3/uL Absolute Nucleated RBC (0.0-0.012) X10*3/uL Nucleated RBC % (auto) (0.0-0.2) /100WBC Smear Tech's Comments PT (10.0-13.1) SEC INR (0.9-1.1) APTT (26.0-36.4) SEC Sodium (135-145) mmol/L Potassium (3.3-5.1) mmol/L Chloride (96-108) mmol/L Carbon Dioxide (22-29) mmol/L Anion Gap (12-20) BUN (9-16) mg/dL Creatinine (0.5-1.4) mg/dL Estim Creat Clear Calc Estimated GFR Random Glucose (60-115) mg/dL Calcium (8.4-10.2) mg/dL Total Bilirubin (0.0-1.0) mg/dL AST (5-31) U/L ALT (0-31) U/L Alkaline Phosphatase (39-117) U/L Troponin I High Sens (<3.5-17.0) ng/L Total Protein (6.5-8.0) g/dL Albumin (3.5-5.0) g/dL Lipase (8-78) U/L Beta HCG, Quant mIU/mL Urine Opiates Screen Not Detected (Not Detect) Urine Fentanyl Screen Not Detected (Not Detect) Acetaminophen 31 H (<30) mcg/mL Ur Barbiturates Screen Not Detected (Not Detect) Ur Phencyclidine Scrn Not Detected (Not Detect) Ur Amphetamines Screen Not Detected (Not Detect) U Benzodiazepines Scrn Not Detected (Not Detect) Urine Cocaine Screen Not Detected (Not Detect) U Marijuana (THC) Screen Not Detected (Not Detect) Ethyl Alcohol < 10 mg/dL COVID-19 (ALIA) (Negative) COVID-19 Clin Com 08/16/22 08/16/22 Range/Units 23:26 23:26 WBC (4.8-10.8) X10*3/uL RBC (4.20-5.50) X10*6/uL Hgb (12.0-16.0) g/dl Hct (37.0-47.0) % MCV (80.0-98.0) fL MCH (27.0-33.0) pg MCHC (31.0-35.0) g/dl RDW (11.0-16.0) % Plt Count (160-400) X10*3/uL MPV (9.4-12.3) fL Immature Gran % (Auto) (0.0-0.4) % Neut % (Auto) (45-73) % Lymph % (Auto) (20-40) % Rosebud % (Auto) (2-11) % Eos % (Auto) (0-4) % Baso % (Auto) (0-2) % Lymph # (Auto) (1.2-4.9) X10*3/uL [place] # (Auto) (0.1-1.2) X10*3/uL Eos # (Auto) (0.0-0.4) X10*3/uL Baso # (Auto) (0.0-0.2) X10*3/uL Abs Immat Gran (auto) (0.00-0.03) X10*3/uL Absolute Neuts (auto) (2.0-8.3) x10*3/uL Absolute Nucleated RBC (0.0-0.012) X10*3/uL Nucleated RBC % (auto) (0.0-0.2) /100WBC Smear Tech's Comments PT 35.1 H (10.0-13.1) SEC INR 2.9 H (0.9-1.1) APTT 29.1 (26.0-36.4) SEC Sodium (135-145) mmol/L Potassium (3.3-5.1) mmol/L Chloride (96-108) mmol/L Carbon Dioxide (22-29) mmol/L Anion Gap (12-20) BUN (9-16) mg/dL Creatinine (0.5-1.4) mg/dL Estim Creat Clear Calc Estimated GFR Random Glucose (60-115) mg/dL Calcium (8.4-10.2) mg/dL Total Bilirubin (0.0-1.0) mg/dL AST (5-31) U/L ALT (0-31) U/L Alkaline Phosphatase (39-117) U/L Troponin I High Sens (<3.5-17.0) ng/L Total Protein (6.5-8.0) g/dL Albumin (3.5-5.0) g/dL Lipase (8-78) U/L Beta HCG, Quant mIU/mL Urine Opiates Screen (Not Detect) Urine Fentanyl Screen (Not Detect) Acetaminophen (<30) mcg/mL Ur Barbiturates Screen (Not Detect) Ur Phencyclidine Scrn (Not Detect) Ur Amphetamines Screen (Not Detect) U Benzodiazepines Scrn (Not Detect) Urine Cocaine Screen (Not Detect) U Marijuana (THC) Screen (Not Detect) Ethyl Alcohol mg/dL COVID-19 (ALIA) Negative (Negative) COVID-19 Clin Com See Note Imaging Data CT scan - abdomen: Radiologist's impression: FINDINGS: LUNG BASES: Subsegmental bibasilar atelectasis.? LIVER, GALLBLADDER, AND BILIARY TREE: The liver demonstrates hypoattenuation suggesting steatosis. No focal hepatic lesion or biliary ductal dilatation is present. The gallbladder is physiologically distended. There is prominent enhancement of the gallbladder wall with adjacent haziness laterally. No densely calcified gallstones are seen.? PANCREAS: Unremarkable.? SPLEEN: Unremarkable.? ADRENAL GLANDS: Unremarkable.? 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 No hydronephrosis or obstructing calculus identified.? BLADDER: Mildly distended with diffusely thick-walled appearance.? GASTROINTESTINAL TRACT: No evidence of bowel obstruction. There is mild colonic diverticulosis without diverticulitis. No significant bowel wall thickening is seen. The appendix is unremarkable. No free fluid or free air is seen.? ABDOMINAL WALL: No significant hernia is appreciated.? LYMPH NODES: Normal. VASCULAR: Unremarkable. PELVIC VISCERA: There is a 2.8 cm mildly hypodense left adnexal structure measuring greater than simple fluid density. Fibroid suspected anteriorly at the uterine fundus.? OSSEOUS STRUCTURES: Unremarkable.? CT/CT abdomen pelvis w IV con IMPRESSION: 1.? Mildly prominent gallbladder wall with adjacent haziness. Developing cholecystitis cannot be excluded, and correlation with ultrasound is recommended. 2.? Thick-walled appearance of the partially distended urinary bladder, which may be due to cystitis. Correlation with urinalysis is recommended. 3.? Mildly hypodense 2.8 cm structure in the left adnexa, suggestive of a complex ovarian cyst, which may be hemorrhagic. Follow-up pelvic ultrasound would be helpful to assess for resolution. Critical Care Time Critical Care Time Critical Care Time: Yes Total Critical Care Time: 60 Attestation: I have personally provided critical care time. Time includes review of lab data, radiology results, discussion with consultants, and monitoring for potential decompensation. Intervention performed as documented. Discharge Plan Discharge Clinical Impression: Elevated LFTs, Coagulopathy, DEMARCO (acute kidney injury) Patient Disposition: Admitted As Inpatient Prescriptions: No Action pantoprazole [Protonix] [address] for susp in packet 40 mg PO DAILY Qty: 30 0RF
[2022-08-16 22:29] LABS: Lipase 351 U/L (8-78)
[2022-08-16] MEDS: iohexoL 350 MG/ML 100 ML INFUS..BTL IV (22:45)
[2022-08-16 22:55] LABS: HCG Quantitative 5 mIU/mL
[2022-08-16 22:56] LABS: Ethanol < 10 mg/dL
[2022-08-16] MEDS: 0.9 % Sodium Chloride 1,000 ML 999 ML IVCONT (23:02)
[2022-08-16] MEDS: cefTRIAXone sodium 1 GM in 0.9 % Sodium Chloride 50 ML IV (23:37)
[2022-08-16 23:43] LABS: INTERNATIONAL NORM RATIO 2.9 (0.9-1.1); Prothrombin Time 35.1 SEC (10.0-13.1)
[2022-08-16 23:46] LABS: Partial Thromboplastin Time 29.1 SEC (26.0-36.4)
[2022-08-16 23:48] LABS: Acetaminophen LAB 31 mcg/mL (<30)
[2022-08-16 23:51] LABS: COVID-19 Test Negative (Negative)
[2022-08-16 23:58] LABS: Amphetamine Screen Urine Not Detected (Not Detect); Barbiturates, Urine Not Detected (Not Detect); Benzodiazepines Screen Urine Not Detected (Not Detect); Cannabinoid Screen Urine Not Detected (Not Detect); Cocaine Screen Urine Not Detected (Not Detect); Fentanyl, urine Not Detected (Not Detect); Opiate Screen Urine Not Detected (Not Detect); Phencyclidine Screen Urine Not Detected (Not Detect)
[2022-08-17] MEDS: 0.9 % Sodium Chloride 1,000 ML 999 ML IVCONT (00:48)
[2022-08-17 01:23] VITALS: BMI 23.4
[2022-08-17] MEDS: prednisoLONE sodium phosphate 15 MG/5 ML SOLUTION 40 MG PO ×2 (01:53→08:21)
[2022-08-17 02:01] VITALS: BP 119/68; PULSE 118; RESP 18; TEMP 37.8; O2SAT 100
[2022-08-17 04:00] VITALS: BP 130/77; PULSE 100; RESP 16; TEMP 37.5; O2SAT 98
--- NOTE | 2022-08-17 05:44 | PM.IMHP ---
History of Present Illness Date of Service: 08/17/22 Chief Complaint: abd pain 47-year-old female with past medical history of alcohol abuse presents to the hospital with complaints of abdominal pain. She reports that since Sunday she developed diaphoresis, cramping, abdominal pain localized to the periumbilical and epigastric area, nonradiating, 07/22, not associated with alleviating or exacerbating factors. Patient reports that she drank on Sunday and Sunday of this past weekend, but she is usually a daily drinker and drinks 5-6 beers daily. She denies any history of alcohol withdrawal. She reports significant diaphoresis, no fever, no chills, denies any recent travel, no upper respiratory symptoms, no diarrhea and no constipation. She denies any urinary symptoms and no lower extremity edema. She does admit to taking Tylenol 400 mg q.4 hours for the past week due to headaches and various aches and pains in her body. On arrival to the ED patient hemodynamically stable with no significant abnormal vitals Labs are significant for WBC count of 8.7, hemoglobin of 13.1, hematocrit 30.4, PT of 35, INR of 2.9, sodium of 131, creatinine of 1.7 with a baseline of 0.7, AST of 17,138, ALT of 1585, alk-phos of 223, troponin negative, lipase of 351, Abdominal ultrasound shows no cholelithiasis or other convincing finding of acute cholecystitis. As well as hepatic steatosis. CT of the abdomen showed mildly prominent gallbladder wall with adjacent haziness, developing cholecystitis cannot be excluded and correlation with ultrasound is recommended. ED physician discussed the case with the GI doctor Kobe, who recommended patient started on IV Mucomyst and prednisolone and be admitted for further management. Review of Systems Review of Systems: Yes all other systems are reviewed and are negative [facility] Medical History (Updated 08/17/22 @ 05:50 by Vicki Maldonado MD) Alcohol abuse Asthma Cirrhosis Hypertension Hypothyroid Lupus Family History (Updated 08/17/22 @ 05:50 by Vicki Maldonado MD) Other No family history of coronary artery disease Surgical History (Updated 08/17/22 @ 05:50 by Vicki Maldonado MD) H/O hand surgery Social History Alcohol intake: current Alcohol intake frequency: a few times a month Alcohol type: beer and hard liquor Patient Tobacco Use Status: Never used Tobacco Advance Directives: No Meds Allergies Allergy/AdvReac Type Severity Reaction Status Date / Time No Known Allergies Allergy Unverified 07/29/20 15:33 Physical Exam Vital Signs and Narrative: Vital Signs: Last Vital Signs Temp 99.5 F 08/17/22 04:00 Pulse 100 08/17/22 04:00 Resp 16 08/17/22 04:00 BP 130/77 08/17/22 04:00 Pulse Ox 98 08/17/22 04:00 O2 Del Method 08/17/22 04:00 BMI result Body Mass Index 23.4 Const: General: cooperative and no acute distress Orientation/consciousness: patient oriented x3 Eyes: General: appearance normal, both eyes and all related structures Pupils: Equal, round and reactive pupils present Resp: Effort & Inspection: normal respiratory effort Auscultation: clear to auscultation bilaterally Cardio: Rate: regular rate Rhythm: regular rhythm GI: Other: No abdominal tenderness guarding or rebound Palpation (GI): Soft to palpation Auscultation: normal bowel sounds Skin: General skin exam: no rashes or lesions noted Neuro: General: patient oriented x3 Cranial nerves: Yes Equal, round and reactive pupils present Cognition (Neuro): normal cognition Extrem: General: Yes normal to inspection and Yes no pedal edema Results Labs CBC and Chem 7: 08/16/22 16:00 08/16/22 16:00 Labs: Laboratory Results - last 24 hr 08/16/22 08/16/22 08/16/22 16:00 16:00 16:00 MCV 91.2 MCH 31.1 MCHC 34.1 RDW 11.5 Plt Count 133 L D MPV 10.1 Immature Gran % (Auto) 0.5 H Neut % (Auto) 96.9 H Lymph % (Auto) 1.7 L [place] % (Auto) 0.5 L Eos % (Auto) 0.1 Baso % (Auto) 0.3 Lymph # (Auto) 0.2 L [place] # (Auto) 0.0 L Eos # (Auto) 0.0 Baso # (Auto) 0.0 Abs Immat Gran (auto) 0.04 H Absolute Neuts (auto) 8.5 H Absolute Nucleated RBC 0.000 Nucleated RBC % (auto) 0.0 Smear Tech's Comments VERIFIED PT INR APTT Anion Gap 22 H Estim Creat Clear Calc 26.1 Estimated GFR 32 Random Glucose 78 Calcium 9.0 D Total Bilirubin 4.1 H AST 31150 H ALT 1585 H Alkaline Phosphatase 223 H D Troponin I High Sens 5.3 Total Protein 7.5 Albumin 3.5 Lipase 351 H Beta HCG, Quant 5 Urine Opiates Screen Urine Fentanyl Screen Acetaminophen Ur Barbiturates Screen Ur Phencyclidine Scrn Ur Amphetamines Screen U Benzodiazepines Scrn Urine Cocaine Screen U Marijuana (THC) Screen Ethyl Alcohol COVID-19 (ALIA) [employer] 08/16/22 08/16/22 08/16/22 22:32 22:32 23:19 MCV MCH MCHC RDW Plt Count MPV Immature Gran % (Auto) Neut % (Auto) Lymph % (Auto) [place] % (Auto) Eos % (Auto) Baso % (Auto) Lymph # (Auto) [place] # (Auto) Eos # (Auto) Baso # (Auto) Abs Immat Gran (auto) Absolute Neuts (auto) Absolute Nucleated RBC Nucleated RBC % (auto) Smear Tech's Comments PT INR APTT Anion Gap Estim Creat Clear Calc Estimated GFR Random Glucose Calcium Total Bilirubin AST ALT Alkaline Phosphatase Troponin I High Sens Total Protein Albumin Lipase Beta HCG, Quant Urine Opiates Screen Not Detected Urine Fentanyl Screen Not Detected Acetaminophen 31 H Ur Barbiturates Screen Not Detected Ur Phencyclidine Scrn Not Detected Ur Amphetamines Screen Not Detected U Benzodiazepines Scrn Not Detected Urine Cocaine Screen Not Detected U Marijuana (THC) Screen Not Detected Ethyl Alcohol < 10 COVID-19 (ALIA) COVID-[employer] 08/16/22 08/16/22 23:26 23:26 MCV MCH MCHC RDW Plt Count MPV Immature Gran % (Auto) Neut % (Auto) Lymph % (Auto) [place] % (Auto) Eos % (Auto) Baso % (Auto) Lymph # (Auto) [place] # (Auto) Eos # (Auto) Baso # (Auto) Abs Immat Gran (auto) Absolute Neuts (auto) Absolute Nucleated RBC Nucleated RBC % (auto) Smear Tech's Comments PT 35.1 H INR 2.9 H APTT 29.1 Anion Gap Estim Creat Clear Calc Estimated GFR Random Glucose Calcium Total Bilirubin AST ALT Alkaline Phosphatase Troponin I High Sens Total Protein Albumin Lipase Beta HCG, Quant Urine Opiates Screen Urine Fentanyl Screen Acetaminophen Ur Barbiturates Screen Ur Phencyclidine Scrn Ur Amphetamines Screen U Benzodiazepines Scrn Urine Cocaine Screen U Marijuana (THC) Screen Ethyl Alcohol COVID-19 (ALIA) Negative COVID-19 Clin Com See Note Imaging Radiologist's Impressions: Impressions Abdomen/Pelvis CT 08/16/22 22:49 IMPRESSION: 1. Mildly prominent gallbladder wall with adjacent haziness. Developing cholecystitis cannot be excluded, and correlation with ultrasound is recommended. 2. Thick-walled appearance of the partially distended urinary bladder, which may be due to cystitis. Correlation with urinalysis is recommended. 3. Mildly hypodense 2.8 cm structure in the left adnexa, suggestive of a complex ovarian cyst, which may be hemorrhagic. Follow-up pelvic ultrasound would be helpful to assess for resolution. Abdomen Ultrasound 08/17/22 00:05 IMPRESSION: 1. No cholelithiasis or other convincing findings of acute cholecystitis. Small amount of pericholecystic fluid is likely related to a separate process. 2. Hepatic steatosis. Assessment and Plan (1) Acute hepatitis: Status: Acute (2) Acetaminophen toxicity: Status: Acute (3) Coagulopathy: Status: Acute (4) DEMARCO (acute kidney injury): Status: Acute (5) Alcohol abuse: Status: Acute Plan 47-year-old female with past medical history of hypertension, alcohol abuse, presents the hospital with complaints of abdominal pain found to have acute hepatitis # acute hepatitis -likely multifactorial secondary to time low toxicity combined with alcohol abuse - serology pending - although CT abdomen showing possible developing cholecystitis, ultrasound of the abdomen is negative for any such findings. Patient has no leukocytosis, afebrile - GI was consulted recommended Mucomyst IV and prednisone - received 1st dose of Mucomyst in the ED, will continue - will order prednisone daily - follow LFTs closely, - motion withhold for transfer to tertiary care for evaluation of possible liver transplant - follow serology - IV fluids # coagulopathy - secondary to above - no acute bleed - daily PT INR # Tylenol toxicity - reports taking Tylenol q.4 hours - continue Mucomyst IV - discontinue Tylenol # alcohol abuse - daily drinker with no history of alcohol withdrawal - CIWA - thiamine and folic acid DVT prophylaxis: SCDs Pt will require a minimum 2 night hospital stay for management of acute hepatitis requiring close monitoring, as well as IV treatment Quality Stroke Does the patient have a stroke diagnosis?: No VTE Prior VTE?: No VTE Risk Level:: Medical - moderate - high VTE Device Contraindication: N/A - Device Ordered VTE Drug Contraindication: Treatment Not Indicated
[2022-08-17 05:46] LABS: Alanine Aminotransferase 1183 U/L (0-31); Albumin Level 2.5 g/dL (3.5-5.0); Alkaline Phosphatase 157 U/L (39-117); Bilirubin Total 3.8 mg/dL (0.0-1.0); Total Protein 5.4 g/dL (6.5-8.0)
--- NOTE | 2022-08-17 05:47 | PC.NURSE ---
took over care at 3:30am from BRIAN Atkinson. pt sleeping no sign of distress.
[2022-08-17 05:54] LABS: Aspartate Amino Transferase 13221 U/L (5-31)
[2022-08-17 05:57] VITALS: BP 115/64; PULSE 116; RESP 18; TEMP 37.7; O2SAT 98
[2022-08-17 05:59] VITALS: BMI 26.9
[2022-08-17 06:05] LABS: Appearance Urine Turbid; Color Urine Dark Yellow; Glucose Urine UA Negative (Negative); Leukocyte Esterase Urine Small (1+) (Negative); Nitrite Urine Negative (Negative); Specific Gravity - Urine >= 1.030 (1.005-1.025); UMIC TRIGGER UA YES; Urine Blood Trace (Negative); Urine Ketones Trace mg/dL (Negative); Urine Protein 100 (2+) mg/dL (Neg-Trace)
[2022-08-17 06:16] LABS: Bacteria Urine 4+ (None Seen); Granular Casts Urine Present; Hyaline Casts Urine >20 /LPF (0-2); RBC Urine 0-2 /HPF (0-2); Squamous Epithelial Cell Urine >20 /HPF (0-2)
[2022-08-17 06:37] LABS: Basophils Percent Auto 0.3 % (0-2); Hemoglobin 11.6 g/dl (12.0-16.0); PLT CLUMP 1; Red Cell Distribution Width 11.5 % (11.0-16.0); SCAN SMEAR FLAG 1
[2022-08-17 06:39] LABS: Eosinophils Percent Auto 0.1 % (0-4); Hematocrit 33.9 % (37.0-47.0); Imm Gran Abs Auto 0.22 X10*3/uL (0.00-0.03); Lymphocytes Absolute Auto 0.2 X10*3/uL (1.2-4.9); Lymphocytes Percent Auto 1.4 % (20-40); MANUAL DIFF FLAG SCAN; Mean Corpuscular HGB Conc 34.2 g/dl (31.0-35.0); Mean Corpuscular Hemoglobin 31.8 pg (27.0-33.0); Mean Corpuscular Volume 92.9 fL (80.0-98.0); Mean Platelet Volume 11.3 fL (9.4-12.3); Monocytes Absolute Auto 0.2 X10*3/uL (0.1-1.2); Monocytes Percent Auto 1.4 % (2-11); Neutrophils Absolute Auto 10.3 x10*3/uL (2.0-8.3); Neutrophils Percent Auto 94.8 % (45-73); Red Blood Count 3.65 X10*6/uL (4.20-5.50)
[2022-08-17 06:41] LABS: White Blood Count 10.9 X10*3/uL (4.8-10.8)
[2022-08-17 06:42] LABS: Platelet Count 107 X10*3/uL (160-400)
[2022-08-17 06:52] LABS: Ammonia 89 umol/L (13-55)
[2022-08-17 06:57] LABS: INTERNATIONAL NORM RATIO 3.4 (0.9-1.1); Prothrombin Time 40.5 SEC (10.0-13.1)
[2022-08-17 07:03] LABS: Anion Gap 19 (12-20); Blood Urea Nitrogen 12 mg/dL (9-16); Carbon Dioxide 17 mmol/L (22-29); Chloride 101 mmol/L (96-108); Estimated Glomerular Filt Rate 40; Glucose Random 81 mg/dL (60-115); Potassium 4.3 mmol/L (3.3-5.1); Sodium 133 mmol/L (135-145)
[2022-08-17 07:14] LABS: Calcium 7.8 mg/dL (8.4-10.2)
[2022-08-17 07:31] LABS: SLIDE REVIEW VERIFIED
[2022-08-17] MEDS: Phytonadione (Vit K1) 10 MG in 0.9 % Sodium Chloride 50 ML 51 MG IV (08:16)
[2022-08-17] MEDS: 0.9 % Sodium Chloride Flush 3 ML SYRINGE IVFLUSH (08:17)
[2022-08-17] MEDS: Thiamine HCL 100 MG TABLET PO (08:21)
[2022-08-17] MEDS: Folic Acid 1 MG TABLET PO (08:21)
--- NOTE | 2022-08-17 08:43 | PC.NURSE ---
alert, pleasant, nad, skin wpd, medicated as ordered, aware of care plan
--- NOTE | 2022-08-17 09:15 | MHC.CM.PN ---
Patient lives in a house with her Significant Other/Yonatan and she is functionally independent and working as a DIRECTOR [employer]. Home no services vs Care Team intervention r/t ETOH is the tentative plan and CM has initiated and will follow for dc planning. Patient has received Covid/Pfizer vax x3 and her PCP is Dr. Damián Roberts.
[2022-08-17] MEDS: Lactated Ringers 1,000 ML 100 ML IVCONT (09:22)
--- NOTE | 2022-08-17 09:30 | PHA.MEDREC ---
Pharmacy Consult ? Medication Reconciliation Pharmacy has completed the medication reconciliation. Pt very poor historian and seems to be very noncompliant with medications. Noted that she takes something from a packet which is her pantoprazole, and recently got a prescription filled for prednisone 08/01/[address] Damián Roberts 7.5mg daily. Pt stated there are 3 of them however no other medication has been filled since March. Called [facility] and spoke to Tila who confirmed.
--- NOTE | 2022-08-17 09:49 | PC.NURSE ---
poison control recommends phosphorous, lactic acid and tylenol for now, continue acetadote, repeat lft and inr at approx 0220 sunday or 2 hourse prior to acetadote completion. sorin from poison control [phone]. message given to [address] dejesus and orders placed
[2022-08-17 10:24] LABS: HBS Num1 1.45 mIU/mL (0-7.99); HBc Num1 0.33 S/CO (0.00-0.79); HBsAGNum1 0.72 S/CO (0.00-0.99); Hepatitis B Core Antibody Nonreactive (Nonreactive); Hepatitis B Surface Antigen Negative (Negative); ~HepC Num1 0.29 S/CO (0.00-0.79); ~Hepatitis B Surface Antibody NONREACTIVE (Nonreactive); ~Hepatitis C Antibody Nonreactive (Nonreactive)
[2022-08-17 10:58] LABS: INTERNATIONAL NORM RATIO 3.4 (0.9-1.1); Prothrombin Time 41.6 SEC (10.0-13.1)
[2022-08-17 11:09] VITALS: BP 133/84; PULSE 101; RESP 18; TEMP 36.9; O2SAT 99
[2022-08-17 11:16] LABS: Lactic Acid 5.2 mmol/L (0.5-2.0)
[2022-08-17 11:22] LABS: Acetaminophen LAB 11 mcg/mL (<30); Phosphorus 1.7 mg/dL (2.7-4.5)
[2022-08-17 12:14] LABS: Alanine Aminotransferase 1252 U/L (0-31); Albumin Level 2.8 g/dL (3.5-5.0); Alkaline Phosphatase 190 U/L (39-117); Bilirubin Direct 3.1 mg/dL (0.0-0.5); Bilirubin Total 4.3 mg/dL (0.0-1.0); Total Protein 6.1 g/dL (6.5-8.0)
[2022-08-17 12:50] LABS: Reflex Lactate? Lactic Acid Added
[2022-08-17 12:58] LABS: Aspartate Amino Transferase 13360 U/L (5-31)
[2022-08-17 13:09] LABS: Venous Blood Gas Refer to POC result
--- NOTE | 2022-08-17 13:10 | P.DS_ITS ---
DS: Providers Provider Date of Service: 08/17/22 Date of admission: 08/17/22 05:42 Primary care physician: Damián Roberts MD Consults: 08/17/22 05:39 Consult to Gastroenterology Routine Consulting Provider: Bernardino Bullock Reason for consultation: Transaminitis DS: Diagnosis Discharge Diagnosis (1) Acute hepatitis: Status: Acute (2) Acetaminophen toxicity: Status: Acute (3) Coagulopathy: Status: Acute (4) DEMARCO (acute kidney injury): Status: Acute (5) Alcohol abuse: Status: Acute (6) Elevated LFTs: Status: Acute (7) Lactic acidosis: Status: Acute DS: Summary Hospital Course Hospital Course: 47-year-old female with past medical history of alcohol abuse presents to the hospital with complaints of abdominal pain.? She reports that since Sunday she developed diaphoresis, cramping, abdominal pain localized to the periumbilical and epigastric area, nonradiating, /10, not associated with alleviating or exacerbating factors.? Patient reports that she drank on Sunday and Sunday of this past weekend, but she is usually a daily drinker and drinks 5-6 beers daily.? She denies any history of alcohol withdrawal.? She reports significant d iaphoresis, no fever, no chills, denies any recent travel, no upper respiratory symptoms, no diarrhea and no constipation.? She denies any urinary symptoms and no lower extremity edema. She does admit to taking Tylenol 400 mg q.4 hours for the past week due to headaches and various aches and pains in her body. On arrival to the ED patient hemodynamically stable with no significant abnormal vitals Labs are significant for WBC count of 8.7, hemoglobin of 13.1, hematocrit 30.4, PT of 35, INR of 2.9, sodium of 131, creatinine of 1.7 with a baseline of 0.7, AST of 17,138, ALT of 1585, alk-phos of 223, troponin negative, lipase of 351, Abdominal ultrasound shows no cholelithiasis or other convincing finding of acute cholecystitis.? As well as hepatic steatosis. CT of the abdomen showed mildly prominent gallbladder wall with adjacent haziness, developing cholecystitis cannot be excluded and correlation with ultrasound is recommended. ED physician discussed the case with the GI doctor Kobe, who recommended patient started on IV Mucomyst and prednisolone and be admitted for further management. Hospital course: Patient admitted to the hospital because of acute transaminitis possible to secondary alcohol use and Tylenol toxicity: Patient started on Mucomyst, LFTs somewhat improving, But coagulation and albumin worsening, patient was given vitamin K also. Please continue Mucomyst-poison control recommended to repeat labs(BMP, LFT, INR, tylenolol levels 2 hours before completion of Mucocmyst). In addition patient has lactic acidosis-possible secondary to liver disease as well as dehydration . Continue hydration. DEMARCO: improving, Possible related to above also. Continue hydration Discussed with poison control above. in addition d/w GI-possible need for teritery care tranfer due to above-Patient is awaiting transfer to [facility] as per bed availability. patient d/w with [facility] -accepted and being transferred -accepting physician is Dr Burk. Patient management discussed the patient in detail length she understand and in agreement with the above plan. Time spent 50 minute. Time Spent with Patient Time attestation: Total time spent providing and/or coordinating discharge services: Discharge coordination time: Greater than 30 minutes Quality: Safe Use of Opioids Does Pt have an Active Cancer Diagnosis on the Problem List?: No Quality: Stroke Does the patient have a stroke diagnosis?: No Physical Exam Vital Signs: Vital Signs: Last Vital Signs Temp 98.5 F 08/17/22 11:09 Pulse 101 H 08/17/22 11:09 Resp 18 08/17/22 11:09 BP 133/84 08/17/22 11:09 Pulse Ox 99 08/17/22 11:09 O2 Del Method 08/17/22 11:09 BMI result Body Mass Index 26.9 Appearance: Alert.? Oriented X3.? not in distress.? Eyes: Pupils equal, round and reactive to light.? Sclera icteric.? ENT: Pharynx normal.? Moist mucous membranes. cvs: rrr, [id number] . res: clear to auscultation ,no rhonchii or wheezing abd: no rebound or guarding ,nt, bs present. ext pulses present , no cyanosis . neuro: axo3 , nonfocal. DS: Data Data Completed and Pending Labs on day of discharge: Laboratory Results - last 24 hr 08/16/22 08/16/22 08/16/22 16:00 16:00 16:00 WBC 8.7 RBC 4.21 Hgb 13.1 Hct 38.4 MCV 91.2 MCH 31.1 MCHC 34.1 RDW 11.5 Plt Count 133 L D MPV 10.1 Immature Gran % (Auto) 0.5 H Neut % (Auto) 96.9 H Lymph % (Auto) 1.7 L [place] % (Auto) 0.5 L Eos % (Auto) 0.1 Baso % (Auto) 0.3 Lymph # (Auto) 0.2 L [place] # (Auto) 0.0 L Eos # (Auto) 0.0 Baso # (Auto) 0.0 Abs Immat Gran (auto) 0.04 H Absolute Neuts (auto) 8.5 H Absolute Nucleated RBC 0.000 Nucleated RBC % (auto) 0.0 Smear Tech's Comments VERIFIED PT INR APTT Sodium 131 L Potassium 3.8 Chloride 93 L Carbon Dioxide 20 L Anion Gap 22 H BUN 11 D Creatinine 1.72 H Estim Creat Clear Calc 26.1 Estimated GFR 32 Random Glucose 78 Lactic Acid Calcium 9.0 D Phosphorus Total Bilirubin 4.1 H Direct Bilirubin AST 71362 H ALT 1585 H Alkaline Phosphatase 223 H D Ammonia Troponin I High Sens 5.3 Total Protein 7.5 Albumin 3.5 Lipase 351 H Beta HCG, Quant 5 Urine Color Urine Appearance Urine pH Ur Specific Ronald Urine Protein Urine Glucose (UA) Urine Ketones Urine Blood Urine Nitrite Ur Leukocyte Esterase Urine RBC Urine WBC Ur Squamous Epith Cells Urine Bacteria Hyaline Casts Granular Casts Urine Opiates Screen Urine Fentanyl Screen Acetaminophen Ur Barbiturates Screen Ur Phencyclidine Scrn Ur Amphetamines Screen U Benzodiazepines Scrn Urine Cocaine Screen U Marijuana (THC) Screen Ethyl Alcohol COVID-19 (ALIA) COVID-19 Clin Com Hep Bs Antigen Hep Bs Antibody Hep B Core Total Ab Hepatitis C Ab (EIA) 08/16/22 08/16/22 08/16/22 22:32 22:32 22:32 WBC RBC Hgb Hct MCV MCH MCHC RDW Plt Count MPV Immature Gran % (Auto) Neut % (Auto) Lymph % (Auto) [place] % (Auto) Eos % (Auto) Baso % (Auto) Lymph # (Auto) [place] # (Auto) Eos # (Auto) Baso # (Auto) Abs Immat Gran (auto) Absolute Neuts (auto) Absolute Nucleated RBC Nucleated RBC % (auto) Smear Tech's Comments PT INR APTT Sodium Potassium Chloride Carbon Dioxide Anion Gap BUN Creatinine Estim Creat Clear Calc Estimated GFR Random Glucose Lactic Acid Calcium Phosphorus Total Bilirubin Direct Bilirubin AST ALT Alkaline Phosphatase Ammonia Troponin I High Sens Total Protein Albumin Lipase Beta HCG, Quant Urine Color Urine Appearance Urine pH Ur Specific Ronald Urine Protein Urine Glucose (UA) Urine Ketones Urine Blood Urine Nitrite Ur Leukocyte Esterase Urine RBC Urine WBC Ur Squamous Epith Cells Urine Bacteria Hyaline Casts Granular Casts Urine Opiates Screen Urine Fentanyl Screen Acetaminophen 31 H Ur Barbiturates Screen Ur Phencyclidine Scrn Ur Amphetamines Screen U Benzodiazepines Scrn Urine Cocaine Screen U Marijuana (THC) Screen Ethyl Alcohol < 10 COVID-19 (ALIA) COVID-19 Clin Com Hep Bs Antigen Negative Hep Bs Antibody NONREACTIVE Hep B Core Total Ab Nonreactive Hepatitis C Ab (EIA) Nonreactive 08/16/22 08/16/22 08/16/22 23:19 23:19 23:26 WBC RBC Hgb Hct MCV MCH MCHC RDW Plt Count MPV Immature Gran % (Auto) Neut % (Auto) Lymph % (Auto) [place] % (Auto) Eos % (Auto) Baso % (Auto) Lymph # (Auto) [place] # (Auto) Eos # (Auto) Baso # (Auto) Abs Immat Gran (auto) Absolute Neuts (auto) Absolute Nucleated RBC Nucleated RBC % (auto) Smear Tech's Comments PT 35.1 H INR 2.9 H APTT 29.1 Sodium Potassium Chloride Carbon Dioxide Anion Gap BUN Creatinine Estim Creat Clear Calc Estimated GFR Random Glucose Lactic Acid Calcium Phosphorus Total Bilirubin Direct Bilirubin AST ALT Alkaline Phosphatase Ammonia Troponin I High Sens Total Protein Albumin Lipase Beta HCG, Quant Urine Color Dark Yellow Urine Appearance Turbid Urine pH 5.0 Ur Specific Ronald >= 1.030 H Urine Protein 100 (2+) H Urine Glucose (UA) Negative Urine Ketones Trace Urine Blood Trace H Urine Nitrite Negative Ur Leukocyte Esterase Small (1+) H Urine RBC 0-2 Urine WBC 11-20 H Ur Squamous Epith Cells >20 Urine Bacteria 4+ Hyaline Casts >20 Granular Casts Present Urine Opiates Screen Not Detected Urine Fentanyl Screen Not Detected Acetaminophen Ur Barbiturates Screen Not Detected Ur Phencyclidine Scrn Not Detected Ur Amphetamines Screen Not Detected U Benzodiazepines Scrn Not Detected Urine Cocaine Screen Not Detected U Marijuana (THC) Screen Not Detected Ethyl Alcohol COVID-19 (ALIA) COVID-19 Clin Com Hep Bs Antigen Hep Bs Antibody Hep B Core Total Ab Hepatitis C Ab (EIA) 08/16/22 08/17/22 08/17/22 23:26 04:56 06:04 WBC 10.9 H RBC 3.65 L Hgb 11.6 L Hct 33.9 L MCV 92.9 MCH 31.8 MCHC 34.2 RDW 11.5 Plt Count 107 L MPV 11.3 Immature Gran % (Auto) 2.0 H Neut % (Auto) 94.8 H Lymph % (Auto) 1.4 L [place] % (Auto) 1.4 L Eos % (Auto) 0.1 Baso % (Auto) 0.3 Lymph # (Auto) 0.2 L [place] # (Auto) 0.2 Eos # (Auto) 0.0 Baso # (Auto) 0.0 Abs Immat Gran (auto) 0.22 H Absolute Neuts (auto) 10.3 H Absolute Nucleated RBC 0.000 Nucleated RBC % (auto) 0.0 Smear Tech's Comments VERIFIED PT INR APTT Sodium Potassium Chloride Carbon Dioxide Anion Gap BUN Creatinine Estim Creat Clear Calc Estimated GFR Random Glucose Lactic Acid Calcium Phosphorus Total Bilirubin 3.8 H Direct Bilirubin 3.0 H AST 88654 H ALT 1183 H Alkaline Phosphatase 157 H D Ammonia Troponin I High Sens Total Protein 5.4 L D Albumin 2.5 L D Lipase Beta HCG, Quant Urine Color Urine Appearance Urine pH Ur Specific Ronald Urine Protein Urine Glucose (UA) Urine Ketones Urine Blood Urine Nitrite Ur Leukocyte Esterase Urine RBC Urine WBC Ur Squamous Epith Cells Urine Bacteria Hyaline Casts Granular Casts Urine Opiates Screen Urine Fentanyl Screen Acetaminophen Ur Barbiturates Screen Ur Phencyclidine Scrn Ur Amphetamines Screen U Benzodiazepines Scrn Urine Cocaine Screen U Marijuana (THC) Screen Ethyl Alcohol COVID-19 (ALIA) Negative COVID-19 Clin Com See Note Hep Bs Antigen Hep Bs Antibody Hep B Core Total Ab Hepatitis C Ab (EIA) 08/17/22 08/17/22 08/17/22 06:04 06:41 06:41 WBC RBC Hgb Hct MCV MCH MCHC RDW Plt Count MPV Immature Gran % (Auto) Neut % (Auto) Lymph % (Auto) [place] % (Auto) Eos % (Auto) Baso % (Auto) Lymph # (Auto) [place] # (Auto) Eos # (Auto) Baso # (Auto) Abs Immat Gran (auto) Absolute Neuts (auto) Absolute Nucleated RBC Nucleated RBC % (auto) Smear Tech's Comments PT 40.5 H INR 3.4 H APTT Sodium 133 L Potassium 4.3 Chloride 101 Carbon Dioxide 17 L Anion Gap 19 BUN 12 Creatinine 1.42 H Estim Creat Clear Calc 37.0 Estimated GFR 40 Random Glucose 81 Lactic Acid Calcium 7.8 L D Phosphorus Total Bilirubin Direct Bilirubin AST ALT Alkaline Phosphatase Ammonia 89 H Troponin I High Sens Total Protein Albumin Lipase Beta HCG, Quant Urine Color Urine Appearance Urine pH Ur Specific Ronald Urine Protein Urine Glucose (UA) Urine Ketones Urine Blood Urine Nitrite Ur Leukocyte Esterase Urine RBC Urine WBC Ur Squamous Epith Cells Urine Bacteria Hyaline Casts Granular Casts Urine Opiates Screen Urine Fentanyl Screen Acetaminophen Ur Barbiturates Screen Ur Phencyclidine Scrn Ur Amphetamines Screen U Benzodiazepines Scrn Urine Cocaine Screen U Marijuana (THC) Screen Ethyl Alcohol COVID-19 (ALIA) COVID-19 Clin Com Hep Bs Antigen Hep Bs Antibody Hep B Core Total Ab Hepatitis C Ab (EIA) 08/17/22 08/17/22 08/17/22 10:47 10:47 10:47 WBC RBC Hgb Hct MCV MCH MCHC RDW Plt Count MPV Immature Gran % (Auto) Neut % (Auto) Lymph % (Auto) [place] % (Auto) Eos % (Auto) Baso % (Auto) Lymph # (Auto) [place] # (Auto) Eos # (Auto) Baso # (Auto) Abs Immat Gran (auto) Absolute Neuts (auto) Absolute Nucleated RBC Nucleated RBC % (auto) Smear Tech's Comments PT 41.6 H INR 3.4 H APTT Sodium Potassium Chloride Carbon Dioxide Anion Gap BUN Creatinine Estim Creat Clear Calc Estimated GFR Random Glucose Lactic Acid 5.2 H* Calcium Phosphorus Total Bilirubin 4.3 H Direct Bilirubin 3.1 H AST 54241 H ALT 1252 H Alkaline Phosphatase 190 H D Ammonia Troponin I High Sens Total Protein 6.1 L Albumin 2.8 L Lipase Beta HCG, Quant Urine Color Urine Appearance Urine pH Ur Specific Ronald Urine Protein Urine Glucose (UA) Urine Ketones Urine Blood Urine Nitrite Ur Leukocyte Esterase Urine RBC Urine WBC Ur Squamous Epith Cells Urine Bacteria Hyaline Casts Granular Casts Urine Opiates Screen Urine Fentanyl Screen Acetaminophen Ur Barbiturates Screen Ur Phencyclidine Scrn Ur Amphetamines Screen U Benzodiazepines Scrn Urine Cocaine Screen U Marijuana (THC) Screen Ethyl Alcohol COVID-19 (ALIA) COVID-19 Clin Com Hep Bs Antigen Hep Bs Antibody Hep B Core Total Ab Hepatitis C Ab (EIA) 08/17/22 10:47 WBC RBC Hgb Hct MCV MCH MCHC RDW Plt Count MPV Immature Gran % (Auto) Neut % (Auto) Lymph % (Auto) [place] % (Auto) Eos % (Auto) Baso % (Auto) Lymph # (Auto) [place] # (Auto) Eos # (Auto) Baso # (Auto) Abs Immat Gran (auto) Absolute Neuts (auto) Absolute Nucleated RBC Nucleated RBC % (auto) Smear Tech's Comments PT INR APTT Sodium Potassium Chloride Carbon Dioxide Anion Gap BUN Creatinine Estim Creat Clear Calc Estimated GFR Random Glucose Lactic Acid Calcium Phosphorus 1.7 L Total Bilirubin Direct Bilirubin AST ALT Alkaline Phosphatase Ammonia Troponin I High Sens Total Protein Albumin Lipase Beta HCG, Quant Urine Color Urine Appearance Urine pH Ur Specific Ronald Urine Protein Urine Glucose (UA) Urine Ketones Urine Blood Urine Nitrite Ur Leukocyte Esterase Urine RBC Urine WBC Ur Squamous Epith Cells Urine Bacteria Hyaline Casts Granular Casts Urine Opiates Screen Urine Fentanyl Screen Acetaminophen 11 Ur Barbiturates Screen Ur Phencyclidine Scrn Ur Amphetamines Screen U Benzodiazepines Scrn Urine Cocaine Screen U Marijuana (THC) Screen Ethyl Alcohol COVID-19 (ALIA) COVID-19 Clin Com Hep Bs Antigen Hep Bs Antibody Hep B Core Total Ab Hepatitis C Ab (EIA) Additional Comments Additional comments: US/US abdomen limited IMPRESSION: 1. No cholelithiasis or other convincing findings of acute cholecystitis. Small amount of pericholecystic fluid is likely related to a separate process. 2. Hepatic steatosis. CT/CT abdomen pelvis w IV con IMPRESSION: 1.? Mildly prominent gallbladder wall with adjacent haziness. Developing cholecystitis cannot be excluded, and correlation with ultrasound is recommended. 2.? Thick-walled appearance of the partially distended urinary bladder, which may be due to cystitis. Correlation with urinalysis is recommended. 3.? Mildly hypodense 2.8 cm structure in the left adnexa, suggestive of a complex ovarian cyst, which may be hemorrhagic. Follow-up pelvic ultrasound would be helpful to assess for resolution. Discharge Plan Discharge Anticipated Discharge Date/Time: 08/17/22 12:58 Patient Disposition: [facility] Discharge Diagnosis: acute severe tranaminitis possible sec to tylenol toxicity and alcohol use Referrals: Damián Roberts MD [Primary Care Provider] - 1 Week Discharge Medications: New thiamine mononitrate (vit B1) 100 mg Tablet 100 mg PO DAILY Qty: 30 0RF prednisolone sodium phosphate 15 mg/5 mL (3 mg/mL) Solution 40 mg PO DAILY Qty: 1 0RF folic acid 1 mg Tablet 1 mg PO DAILY Qty: 30 0RF Continued pantoprazole [Protonix] [address] for susp in packet 40 mg PO DAILY Qty: 30 0RF Held prednisone 5 mg tablet 1.5 tab PO DAILY Hold Instructions: Resume on 08/29/22. Discharge Orders: Discharge Order (Routine); Ordered 08/17/22 Ordered By: Adryan Jones Diet: Advance to usual diet Activity on Discharge: As tolerated Stand Alone Forms: Patient Portal Discharge page Care Plan Goals: Patient admitted to the hospital because of acute transaminitis possible to secondary alcohol use and Tylenol toxicity: Patient started on Mucomyst, LFTs somewhat improving, But coagulation and albumin worsening, patient was given vitamin K also. Please continue Mucomyst-poison control recommended to repeat labs(BMP, LFT, INR, tylenolol levels 2 hours before completion of Mucocmyst) In addition patient has lactic acidosis-possible secondary to liver disease as well as dehydration . Continue hydration. DEMARCO: improving, Possible related to above also. Continue hydration Discussed with poison control and GI. Patient is awaiting transfer to [facility] or [facility] as per bed availability. Health Concerns: as above. Plan of Treatment: Please continue Mucomyst-poison control recommended to repeat labs(BMP, LFT, INR, tylenolol levels 2 hours before completion of Mucocmyst) Assessment: as above.
[2022-08-17 13:20] LABS: VBG HCO3 19 mmol/L (22-26); VBG pCO2 25 mmHg; VBG pH 7.49 (7.32-7.43); VBG pO2 158 mmHg
[2022-08-17 13:35] LABS: ~Lactic Acid-LAB USE ONLY 3.8 mmol/L (0.5-2.0)
[2022-08-17 14:00] VITALS: BP 137/78; PULSE 76; RESP 17; TEMP 36.6; O2SAT 98
[2022-08-17 15:06] LABS: Reflex Lactate? 2 Y
--- NOTE | 2022-08-17 15:09 | PC.NURSE ---
report to ems and to edison olivera, including recommendations of poison control for repeat labs at 0200
--- NOTE | 2022-08-17 19:25 | P.EN_ITS ---
Event Note Date of Service: 08/17/22 Event Note: GI Holding Note---I reviewed the case at 1AM today with Dr. Nair and again with Dr. Jonse earlier today. Given the increasing PT/INR and the clinical scenario, plans were made to transfer her to [facility] in the event of progressive liver failure and need for transplant. Therefore, I did not come over to do a formal consult. However, I now noticed that she is still here and I will therefore see her on 08/18 if she remains at [facility] [place]. Repeat labs have been ordered for the morning to further assess the status of the acute hepatitis and her liver function. Thanks.
[2022-08-18 03:58] LABS: Hepatitis A Antibody IgM 0.16 Index (0-0.79); ~Hepatitis A Antibody IgM Nonreactive (Nonreactive)
== END 2022-08-18 14:03 | disposition short-term general hospital (02) | DRG 812 ==
LOC: HO.ED 08-17 01:25 → HO.EDOVER 08-17 05:56
PROVIDERS: Internal Medicine; Admitting Provider Internal Medicine; Emergency Provider Emergency Medicine; PCP Internal Medicine; Visit Provider Internal Medicine
DX: T39.1X1A Poisoning by 4-Aminophenol derivatives, accidental (unintentional), initial encounter (principal); D68.4 Acquired coagulation factor deficiency; N17.9 Acute kidney failure, unspecified; K70.10 Alcoholic hepatitis without ascites; M32.9 Systemic lupus erythematosus, unspecified; I10 Essential (primary) hypertension; F10.10 Alcohol abuse, uncomplicated; E03.9 Hypothyroidism, unspecified; J45.909 Unspecified asthma, uncomplicated; Z20.822 Contact with and (suspected) exposure to COVID-19; Z79.52 Long term (current) use of systemic steroids; Z79.899 Other long term (current) drug therapy
CPT/HCPCS: 36415; 74177; 76705; 80048; 80053; 80076; 80143; 80307; 81001; 82077; 82140; 82803; 83605; 83690; 84100; 84484; 84702; 85025; 85610; 85730; 86704; 86706; 86709; 86803; 87340; 87635; 93005; 99285; J0132; J0696; J3430; Q9967

== ENCOUNTER 2022-08-23 15:05 | Outpatient (REF) | payer OTHER, SELFPAY ==
[2022-08-23 16:10] LABS: Basophils Percent Auto 0.2 % (0-2); Eosinophils Absolute Auto 0.1 X10*3/uL (0.0-0.4); Eosinophils Percent Auto 1.5 % (0-4); Hematocrit 37.4 % (37.0-47.0); Hemoglobin 12.3 g/dl (12.0-16.0); Imm Gran Abs Auto 0.15 X10*3/uL (0.00-0.03); Imm Gran Pct Auto 1.7 % (0.0-0.4); MANUAL DIFF FLAG SCAN; Mean Corpuscular HGB Conc 32.9 g/dl (31.0-35.0); Mean Corpuscular Hemoglobin 31.1 pg (27.0-33.0); Mean Corpuscular Volume 94.4 fL (80.0-98.0); Mean Platelet Volume 11.5 fL (9.4-12.3); Monocytes Absolute Auto 2.1 X10*3/uL (0.1-1.2); Monocytes Percent Auto 23.4 % (2-11); Neutrophils Absolute Auto 5.5 x10*3/uL (2.0-8.3); Neutrophils Percent Auto 62.2 % (45-73); Platelet Count 254 X10*3/uL (160-400); Red Blood Count 3.96 X10*6/uL (4.20-5.50); Red Cell Distribution Width 12.4 % (11.0-16.0); SCAN SMEAR FLAG 1; White Blood Count 8.8 X10*3/uL (4.8-10.8)
[2022-08-23 16:12] LABS: Prothrombin Time 11.6 SEC (10.0-13.1)
[2022-08-23 16:15] LABS: Partial Thromboplastin Time 33.2 SEC (26.0-36.4)
[2022-08-23 16:40] LABS: Alanine Aminotransferase 207 U/L (0-31); Albumin Level 3.5 g/dL (3.5-5.0); Alkaline Phosphatase 248 U/L (39-117); Anion Gap 15 (12-20); Aspartate Amino Transferase 210 U/L (5-31); Blood Urea Nitrogen 8 mg/dL (9-16); C Reactive Protein 2.78 mg/dL (< or = 0.50); Calcium 9.1 mg/dL (8.4-10.2); Carbon Dioxide 24 mmol/L (22-29); Chloride 98 mmol/L (96-108); Estimated Glomerular Filt Rate > 60; Glucose Random 80 mg/dL (60-115); Potassium 4.5 mmol/L (3.3-5.1); Sodium 132 mmol/L (135-145); Total Protein 7.5 g/dL (6.5-8.0)
[2022-08-23 16:53] LABS: SLIDE REVIEW VERIFIED
[2022-08-23 16:57] LABS: Free T4 (Free Thyroxine) 1.34 ng/dL (0.71-1.85); Thyroid Stimulating Hormone 20.61 uIU/mL (0.32-4.0)
== END 2022-08-23 15:06 | disposition home or self-care (01) ==
LOC: HO.LAB 15:05
PROVIDERS: PCP Internal Medicine; Visit Provider Internal Medicine
DX: R79.89 Other specified abnormal findings of blood chemistry (principal); M32.9 Systemic lupus erythematosus, unspecified; E03.9 Hypothyroidism, unspecified
CPT/HCPCS: 36415; 80053; 84439; 84443; 85025; 85610; 85730; 86140

== ENCOUNTER 2022-09-01 14:47 | Outpatient (REF) | payer OTHER, SELFPAY ==
[2022-09-01 15:34] LABS: Basophils Absolute Auto 0.1 X10*3/uL (0.0-0.2); Basophils Percent Auto 0.9 % (0-2); Eosinophils Absolute Auto 0.2 X10*3/uL (0.0-0.4); Eosinophils Percent Auto 2.5 % (0-4); Hematocrit 34.8 % (37.0-47.0); Imm Gran Abs Auto 0.06 X10*3/uL (0.00-0.03); Imm Gran Pct Auto 0.7 % (0.0-0.4); Lymphocytes Absolute Auto 1.4 X10*3/uL (1.2-4.9); Lymphocytes Percent Auto 15.3 % (20-40); MANUAL DIFF FLAG SCAN; Mean Corpuscular HGB Conc 31.6 g/dl (31.0-35.0); Mean Corpuscular Hemoglobin 30.7 pg (27.0-33.0); Mean Corpuscular Volume 97.2 fL (80.0-98.0); Mean Platelet Volume 9.9 fL (9.4-12.3); Monocytes Absolute Auto 1.6 X10*3/uL (0.1-1.2); Monocytes Percent Auto 17.5 % (2-11); Neutrophils Absolute Auto 5.7 x10*3/uL (2.0-8.3); Neutrophils Percent Auto 63.1 % (45-73); Platelet Count 473 X10*3/uL (160-400); Red Blood Count 3.58 X10*6/uL (4.20-5.50); Red Cell Distribution Width 12.4 % (11.0-16.0); SCAN SMEAR FLAG 1; White Blood Count 9.1 X10*3/uL (4.8-10.8)
[2022-09-01 15:53] LABS: Alanine Aminotransferase 41 U/L (0-31); Albumin Level 3.1 g/dL (3.5-5.0); Alkaline Phosphatase 127 U/L (39-117); Anion Gap 14 (12-20); Aspartate Amino Transferase 61 U/L (5-31); Bilirubin Total 0.7 mg/dL (0.0-1.0); Blood Urea Nitrogen 7 mg/dL (9-16); Calcium 9.3 mg/dL (8.4-10.2); Carbon Dioxide 24 mmol/L (22-29); Chloride 103 mmol/L (96-108); Estimated Glomerular Filt Rate > 60; Glucose Random 110 mg/dL (60-115); Potassium 3.8 mmol/L (3.3-5.1); Sodium 137 mmol/L (135-145)
[2022-09-01 16:13] LABS: Free T4 (Free Thyroxine) 1.72 ng/dL (0.71-1.85); Thyroid Stimulating Hormone 1.53 uIU/mL (0.32-4.0)
[2022-09-01 16:14] LABS: SLIDE REVIEW VERIFIED
== END 2022-09-01 14:48 | disposition home or self-care (01) ==
LOC: HO.LAB 14:47
PROVIDERS: PCP Internal Medicine; Visit Provider Internal Medicine
DX: R79.89 Other specified abnormal findings of blood chemistry (principal); E03.9 Hypothyroidism, unspecified
CPT/HCPCS: 36415; 80053; 84439; 84443; 85025

== ENCOUNTER 2022-09-21 13:49 | Outpatient (REF) | payer OTHER, SELFPAY ==
[2022-09-21 15:10] LABS: Alanine Aminotransferase 29 U/L (0-31); Albumin Level 3.4 g/dL (3.5-5.0); Alkaline Phosphatase 88 U/L (39-117); Anion Gap 13 (12-20); Aspartate Amino Transferase 55 U/L (5-31); Bilirubin Total 0.7 mg/dL (0.0-1.0); Blood Urea Nitrogen 8 mg/dL (9-16); Calcium 9.4 mg/dL (8.4-10.2); Carbon Dioxide 23 mmol/L (22-29); Chloride 101 mmol/L (96-108); Estimated Glomerular Filt Rate > 60; Glucose Random 91 mg/dL (60-115); Potassium 4.9 mmol/L (3.3-5.1); Sodium 132 mmol/L (135-145); Thyroid Stimulating Hormone 0.17 uIU/mL (0.32-4.0); Total Protein 7.8 g/dL (6.5-8.0)
[2022-09-21 16:04] LABS: Free T4 (Free Thyroxine) 1.72 ng/dL (0.71-1.85)
== END 2022-09-21 13:50 | disposition home or self-care (01) ==
LOC: HO.LAB 13:49
PROVIDERS: PCP Internal Medicine; Visit Provider Internal Medicine
DX: E03.9 Hypothyroidism, unspecified (principal); R79.89 Other specified abnormal findings of blood chemistry
CPT/HCPCS: 36415; 80053; 84439; 84443

== ENCOUNTER 2022-11-07 16:14 | Outpatient (REF) | payer OTHER, SELFPAY ==
[2022-11-07 16:24] LABS: MANUAL DIFF FLAG NO
[2022-11-07 17:25] LABS: Basophils Percent Auto 0.2 % (0-2); Hematocrit 40.6 % (37.0-47.0); Imm Gran Abs Auto 0.03 X10*3/uL (0.00-0.03); Imm Gran Pct Auto 0.4 % (0.0-0.4); Lymphocytes Percent Auto 12.7 % (20-40); Mean Corpuscular Hemoglobin 27.7 pg (27.0-33.0); Mean Corpuscular Volume 86.6 fL (80.0-98.0); Mean Platelet Volume 9.8 fL (9.4-12.3); Monocytes Absolute Auto 0.2 X10*3/uL (0.1-1.2); Monocytes Percent Auto 2.5 % (2-11); Neutrophils Absolute Auto 6.8 x10*3/uL (2.0-8.3); Neutrophils Percent Auto 84.2 % (45-73); Platelet Count 399 X10*3/uL (160-400); Red Blood Count 4.69 X10*6/uL (4.20-5.50); Red Cell Distribution Width 13.2 % (11.0-16.0); White Blood Count 8.1 X10*3/uL (4.8-10.8)
[2022-11-07 18:28] LABS: Alanine Aminotransferase 47 U/L (0-31); Albumin Level 3.7 g/dL (3.5-5.0); Alkaline Phosphatase 86 U/L (39-117); Anion Gap 12 (12-20); Aspartate Amino Transferase 65 U/L (5-31); Bilirubin Total 0.3 mg/dL (0.0-1.0); Blood Urea Nitrogen 9 mg/dL (9-16); Calcium 9.3 mg/dL (8.4-10.2); Carbon Dioxide 26 mmol/L (22-29); Chloride 102 mmol/L (96-108); Estimated Glomerular Filt Rate > 60; Free T4 (Free Thyroxine) 0.75 ng/dL (0.71-1.85); Glucose Random 103 mg/dL (60-115); Potassium 4.3 mmol/L (3.3-5.1); Sodium 136 mmol/L (135-145); Thyroid Stimulating Hormone 8.73 uIU/mL (0.32-4.0)
== END 2022-11-07 16:15 | disposition home or self-care (01) ==
LOC: HO.LAB 16:14
PROVIDERS: PCP Internal Medicine; Visit Provider Internal Medicine
DX: E03.9 Hypothyroidism, unspecified (principal); I10 Essential (primary) hypertension; R79.89 Other specified abnormal findings of blood chemistry
CPT/HCPCS: 36415; 80053; 84439; 84443; 85025

== ENCOUNTER 2023-07-09 13:25 | Emergency (ER) | payer OTHER, SELFPAY ==
--- NOTE | ~2023-07-09 | XR_ITS ---
EXAMINATION: XR CHEST CLINICAL INFORMATION: Chest pain. COMPARISON: None available. TECHNIQUE: 2 views of the chest were obtained. FINDINGS: No significant abnormality is noted involving the heart, lungs, mediastinum, bony thorax or soft tissues. XR/XR chest 2V IMPRESSION: No acute cardiopulmonary process.
[2023-07-09 13:28] VITALS: BP 182/106; PULSE 93; RESP 18; TEMP 36.8; O2SAT 99; BMI 26.1
--- NOTE | 2023-07-09 13:31 | ECG_ITS ---
Test Reason : chest pain Blood Pressure : / mmHG Vent. Rate : 088 BPM Atrial Rate : 088 BPM P-R Int : 180 ms QRS Dur : 084 ms QT Int : 384 ms P-R-T Axes : 064 -34 049 degrees QTc Int : 464 ms Normal sinus rhythm Possible Left atrial enlargement Left axis deviation Minimal voltage criteria for LVH, may be normal variant ( Mynor product ) Abnormal ECG When compared with ECG of 16-AUG-2022 15:53, Heart rate has decreased Referred By: Monica Espinoza Electronically Signed By:JAVID HAIRSTON
--- NOTE | 2023-07-09 13:32 | ED.GENADULT ---
HPI - General Adult General Chief complaint: Nausea/Vomiting/Diarrhea Stated complaint: chest pain Time Seen by Provider: 07/09/23 13:38 Source: patient Mode of arrival: ambulatory Limitations: no limitations History of Present Illness HPI narrative: 47 yo female with history of GERD on omeprazole, alcohol use disorder, and hepatitis presents to ER with 1 day history of abdominal pain. Patient reports pain in her epigastric area that began yesterday 5 minutes after eating a hot dog. Reports that pain has improved today, but still present, 7/10 in severity, burning, and worse with eating or laying down. Reports that she has not been able to eat or drink much today since she is regurgitating both solids and liquids. Reports taking her omeprazole this morning and then throwing up shortly after. Last episode of emesis this morning. Reports fatigue as well as diarrhea this morning. Reports taking COVID test this morning which was negative. Denies current nausea, radiation of pain into left-sided chest, arm or jaw, shortness of breath, fevers, chills, pain elsewhere, diaphoresis. Denies any smoking or current EtOH use. Also takes prednisone 5mg chronically but is unsure why she takes it. MD complaint: epigastric pain, N/V Onset (ago): day(s) Location: abdomen Radiation: non-radiation Severity: moderate Severity scale (1-10): 7 Quality: burning Pain Consistency: intermittent Exacerbating factors: eating Associated symptoms: denies other symptoms Treatments prior to arrival: other (ppi) Related Data Home Medications Medication Instructions Recorded Confirmed prednisone 5 mg tablet 1.5 tab PO DAILY 08/17/22 08/17/22 Previous Rx's Medication Instructions Recorded pantoprazole 40 mg granules 40 mg PO DAILY #30 ea 09/23/20 delayed-release for susp in packet (Protonix) ondansetron 4 mg disintegrating 4 mg PO Q8H PRN nausea and 07/09/23 tablet vomiting #10 tabs sucralfate 1 gram tablet (Carafate) 1 g PO AC #90 tabs 07/09/23 Allergies Allergy/AdvReac Type Severity Reaction Status Date / Time No Known Allergies Allergy Unverified 07/09/23 13:28 Review of Systems Review of Systems: Yes all other systems are reviewed and are negative PMFSH Past Medical History Medical History (Updated 07/09/23 @ 14:59 by AKASH Davalos) Alcohol abuse Asthma Cirrhosis Hypertension Hypothyroid Lupus Surgical History (Updated 08/17/22 @ 05:50 by Vicki Maldonado MD) H/O hand surgery Family History Family History (Updated 08/17/22 @ 05:50 by Vicki Maldonado MD) Other No family history of coronary artery disease Social History Social History Alcohol intake: current Alcohol intake frequency: a few times a month Alcohol type: beer and hard liquor Patient Tobacco Use Status: Never used Tobacco Advance Directives: No Advance Directives Information Provided: Yes service: No Current occupational status: employed Physical Exam ED Vital Signs: Vital Signs - 24 hr 07/09/23 13:28 07/09/23 14:53 Temperature 98.2 F Pulse Rate 93 80 Respiratory Rate 18 16 Blood Pressure 182/106 H 172/99 H Pulse Oximetry 99 98 Oxygen Delivery Method Room Air Room Air BMI result Body Mass Index 26.1 Appearance: Alert. Oriented X3. No acute distress. Head: normocephalic, atraumatic. Eyes: Pupils equal, round and reactive to light. ENT: Pharynx normal. No tonsillar swelling or exudate. Neck: Normal inspection. Neck supple. CVS: Normal heart rate and rhythm. Pulses normal. Respiratory: No respiratory distress. Breath sounds normal. Abdomen: Hypoactive bowel sounds. Abdomen soft, moderately distended. Tenderness to palpation in epigastric area. No tenderness elsewhere. No masses, guarding, or rebound tenderness. Skin: Skin warm and dry. Normal skin color. Normal skin turgor. No rashes. Extremities: No lower extremity edema. No joint swelling. Neuro/psych: Oriented X 3. No motor deficit. No sensory deficit. CN II-XII intact. Normal speech and cognition. Course Course Course Narrative: This is an RME: Additional HPI, ROS, PE not included below will be deferred to primary provider. 47 year old female presenting with epigastric pain that started last night. Worsened after eating a hot dog. Describes pain as burning. Plan: labs, EKG Medications Administered Discontinued Medications Generic Name Dose Route Start Last Admin Trade Name Freq PRN Reason Stop Dose Admin Al Hydroxide/Mg Hydroxide 30 ml 07/09/23 13:33 07/09/23 13:54 Magnesium Hydrox/Alum Hydrox 30 Ml Oral.Susp PO 07/09/23 13:34 30 ml ONCE ONE Administration Ondansetron HCl 4 mg 07/09/23 13:51 07/09/23 13:54 Ondansetron Odt 4 Mg Tab.Josafat GONZALEZINGU 07/09/23 13:52 4 mg ONCE ONE Administration Medical Decision Making Medical Decision Making [facility] Narrative: 47 yo female with epigastric pain that began yesterday 5 minutes after eating hot dog. Ordered EKG, CBC with differential, chemistry, chest X-ray. low suspicion for ACS, dissection. No back pain. Pain relieved with maalox and zofran. workup unremarkable including negative troponin, normal CXR. chronic elevation of LFTs, overall improved. patient most likely suffering from GERD/gastritis given she is on chronic prednisone. will start carafate and have her f/u wtih GI for possible EGD stable for d/c home, all questions answered and return precautions discussed Differential Diagnosis Differential Diagnoses: The differential diagnosis associated with the presentation includes GERD, PUD, gastritis, STEMI, NSTEMI, PE, PTX, unstable angina, abdominal muscle strain, constipation, GI virus Admission/Observation Consideration of admission/observation: Escalation of care including admission/observation considered Lab Data [facility] Lab Attestation statement: I reviewed the patient's lab results. 07/09/23 13:47 07/09/23 13:47 Labs: Lab Results 07/09/23 07/09/23 07/09/23 Range/Units 13:47 13:47 13:47 WBC 6.1 (4.8-10.8) X10*3/uL RBC 4.90 (4.20-5.50) X10*6/uL Hgb 14.1 (12.0-16.0) g/dl Hct 43.8 (37.0-47.0) % MCV 89.4 (80.0-98.0) fL MCH 28.8 (27.0-33.0) pg MCHC 32.2 (31.0-35.0) g/dl RDW 12.1 (11.0-16.0) % Plt Count 294 D (160-400) X10*3/uL MPV 9.4 (9.4-12.3) fL Immature Gran % (Auto) 0.3 (0.0-0.4) % Neut % (Auto) 56.0 (45-73) % Lymph % (Auto) 23.7 (20-40) % [place] % (Auto) 18.8 H (2-11) % Eos % (Auto) 0.7 (0-4) % Baso % (Auto) 0.5 (0-2) % Lymph # (Auto) 1.5 (1.2-4.9) X10*3/uL [place] # (Auto) 1.2 (0.1-1.2) X10*3/uL Eos # (Auto) 0.0 (0.0-0.4) X10*3/uL Baso # (Auto) 0.0 (0.0-0.2) X10*3/uL Abs Immat Gran (auto) 0.02 (0.00-0.03) X10*3/uL Absolute Neuts (auto) 3.4 (2.0-8.3) x10*3/uL Absolute Nucleated RBC 0.000 (0.0-0.012) X10*3/uL Nucleated RBC % (auto) 0.0 (0.0-0.2) /100WBC Sodium 138 (135-145) mmol/L Potassium 3.9 (3.3-5.1) mmol/L Chloride 107 (96-108) mmol/L Carbon Dioxide 23 (22-29) mmol/L Anion Gap 12 (12-20) BUN 7 L (9-16) mg/dL Creatinine 0.70 (0.5-1.4) mg/dL Estim Creat Clear Calc 74.0 Estimated GFR > 60 Random Glucose 103 (60-115) mg/dL Calcium 9.6 (8.4-10.2) mg/dL Total Bilirubin 0.9 (0.0-1.0) mg/dL AST 134 H (5-31) U/L ALT 107 H (0-31) U/L Alkaline Phosphatase 117 (39-117) U/L Troponin I High Sens < 2.7 (<3.5-17.0) ng/L Total Protein 8.7 H (6.5-8.0) g/dL Albumin 3.9 (3.5-5.0) g/dL Lipase 60 (8-78) U/L Independent Interpretation I performed an independent interpretation of an: EKG and Plain X-Ray Interpretation: EKG with normal sinus rhythm. Heart rate 88 bpm. Normal FL interval. Normal QTc. No ST elevations or depressions. Chest X-ray revealed clear lungs, no acute cardiac or pulmonary process. Radiology Impression Discussion of test interpretation with radiology: I have reviewed the radiologist's reading. Radiologist Impression: EXAMINATION: XR CHEST CLINICAL INFORMATION: Chest pain. COMPARISON: None available. TECHNIQUE: 2 views of the chest were obtained. FINDINGS: No significant abnormality is noted involving the heart, lungs, mediastinum, bony thorax or soft tissues. XR/XR chest 2V IMPRESSION: No acute cardiopulmonary process. External Record Review External record reviewed: Inpatient record, Office record, Outpatient record and Prior outpatient labs Tests considered The following testing was considered but not selected: CT chest/abd pelvis considered Prescription Management I considered prescription management with: Pain Medication and Other (carafate) Chronic Conditions Patient?s care impacted by: Hypertension and Other (ETOH use) Critical Care Time Critical Care Time Critical Care Time: No Discharge Plan Discharge Clinical Impression: Gastritis, GERD (gastroesophageal reflux disease) Patient Disposition: Home, Self-Care Instructions: Gastritis (DC), Diet for Stomach Ulcers and Gastritis (ED), Gastroesophageal Reflux Disease (DC) Additional Instructions: Your lab workup today was unremarkable. Your pain is most likely due to gastritis which is and irritation and inflammation of your stomach lining. Start taking the prescribed medication as directed for this. Stick to a bland diet. Avoid foods high in acid, avoid alcohol and NSAID medications like Aleve, Motrin, Advil or ibuprofen. Continue taking Prilosec each morning before breakfast. Follow up with your doctor as needed. Follow up with GI doctor if you symptoms persist despite dietary modifications and medication. If you develop new or worsening symptoms call 911 or come back to the ER for further evaluation. Prescriptions: New sucralfate [Carafate] 1 gram tablet 1 g PO AC Qty: 90 0RF ondansetron 4 mg tablet,disintegrating 4 mg PO Q8H PRN (Reason: nausea and vomiting) Qty: 10 0RF No Action pantoprazole [Protonix] [address] for susp in packet 40 mg PO DAILY Qty: 30 0RF prednisone 5 mg tablet 1.5 tab PO DAILY Referrals: [facility] [place] [facility] [Provider Group] Damián Roberts MD [Primary Care Provider] - Discharge Date/Time: 07/09/23 15:17
--- NOTE | 2023-07-09 13:49 | MHC.EDTECH ---
Labs collected and sent to lab. EKG completed and signed by attending physician
[2023-07-09 13:51] LABS: Basophils Percent Auto 0.5 % (0-2); Eosinophils Percent Auto 0.7 % (0-4); Hematocrit 43.8 % (37.0-47.0); Hemoglobin 14.1 g/dl (12.0-16.0); Imm Gran Abs Auto 0.02 X10*3/uL (0.00-0.03); Imm Gran Pct Auto 0.3 % (0.0-0.4); Lymphocytes Absolute Auto 1.5 X10*3/uL (1.2-4.9); Lymphocytes Percent Auto 23.7 % (20-40); MANUAL DIFF FLAG NO; Mean Corpuscular HGB Conc 32.2 g/dl (31.0-35.0); Mean Corpuscular Hemoglobin 28.8 pg (27.0-33.0); Mean Corpuscular Volume 89.4 fL (80.0-98.0); Mean Platelet Volume 9.4 fL (9.4-12.3); Monocytes Absolute Auto 1.2 X10*3/uL (0.1-1.2); Monocytes Percent Auto 18.8 % (2-11); Neutrophils Absolute Auto 3.4 x10*3/uL (2.0-8.3); Platelet Count 294 X10*3/uL (160-400); Red Cell Distribution Width 12.1 % (11.0-16.0); White Blood Count 6.1 X10*3/uL (4.8-10.8)
[2023-07-09] MEDS: Ondansetron ODT 4 MG TAB.RAPDIS TRANSLINGU (13:54)
[2023-07-09] MEDS: Magnesium Hydrox/Alum Hydrox 30 ML ORAL.SUSP PO (13:54)
[2023-07-09 14:09] LABS: Alanine Aminotransferase 107 U/L (0-31); Albumin Level 3.9 g/dL (3.5-5.0); Alkaline Phosphatase 117 U/L (39-117); Anion Gap 12 (12-20); Aspartate Amino Transferase 134 U/L (5-31); Bilirubin Total 0.9 mg/dL (0.0-1.0); Blood Urea Nitrogen 7 mg/dL (9-16); Calcium 9.6 mg/dL (8.4-10.2); Carbon Dioxide 23 mmol/L (22-29); Chloride 107 mmol/L (96-108); Estimated Glomerular Filt Rate > 60; Glucose Random 103 mg/dL (60-115); Lipase 60 U/L (8-78); Potassium 3.9 mmol/L (3.3-5.1); Sodium 138 mmol/L (135-145); Total Protein 8.7 g/dL (6.5-8.0)
[2023-07-09 14:19] LABS: Troponin-I High Sensitivity < 2.7 ng/L (<3.5-17.0)
[2023-07-09 14:53] VITALS: BP 172/99; PULSE 80; RESP 16; O2SAT 98
== END 2023-07-09 15:17 | disposition home or self-care (01) ==
PROVIDERS: Physician Assistant; Emergency Provider Emergency Medicine; PCP Internal Medicine
DX: K29.70 Gastritis, unspecified, without bleeding (principal); R07.89 Other chest pain; K21.9 Gastro-esophageal reflux disease without esophagitis; R11.2 Nausea with vomiting, unspecified; Z79.899 Other long term (current) drug therapy
CPT/HCPCS: 36415; 71046; 80053; 83690; 84484; 85025; 93005; 99283

== ENCOUNTER 2023-07-11 08:08 | Day surgery (SDC) | payer OTHER, SELFPAY ==
[2023-07-11] VITALS (13 sets, daily range): BP systolic 134–174; BP diastolic 76–132; PULSE 73–102; RESP 14–20; TEMP 36.1–36.9; O2SAT 95–100; BMI 24.7; BMI 27.2
--- NOTE | ~2023-07-11 | CT_ITS ---
EXAMINATION: CT CHEST WITHOUT CONTRAST CLINICAL INFORMATION: Epigastric pain COMPARISON: CT abdomen and pelvis 08/16/2022 TECHNIQUE: Multidetector volumetric CT imaging of the chest was done. Axial MIP volume rendering provided. Sagittal and coronal reformatted images were obtained. This CT examination was performed using dose optimization techniques as appropriate, variously including the following: *Automated exposure control *Adjustment of mA and/or kV according to patient size (this includes techniques or standardized protocols for targeted exams where dose is matched to indication/reason for exam; i.e. extremities or head) *Use of iterative reconstruction technique DLP: 201 mGy-cm FINDINGS: WILDLIFE VETERINARIAN: Unremarkable LUNGS: There are increased subpleural reticular markings with groundglass opacity in the lung bases which are unchanged from 08/16/2022, these may reflect fibrotic change versus atelectasis. There is no dense consolidation. No dominant suspicious pulmonary nodules. MEDIASTINUM: Normal heart size, no pericardial effusion. There is no mediastinal lymphadenopathy. There is layering oral contrast in the midesophagus. At the gastroesophageal junction, there is a mixed fat and soft tissue tissue attenuation lesion measuring approximately 1.7 x 1.6 x 2.7 cm which may be obstructing the gastroesophageal junction as no oral contrast is visualized in the stomach. CORONARY ARTERY CALCIFICATION: None visualized on this study. PLEURA: There is no pleural effusion. No pleural mass or thickening. AXILLA: No lymphadenopathy. UPPER ABDOMEN: Hepatic steatosis. OSSEOUS STRUCTURES: Degenerative changes in the thoracic spine. CT/CT chest wo IV con IMPRESSION: 1. There is a mixed fat and soft tissue attenuation lesion at the gastroesophageal junction measuring 1.7 x 1.6 x 2.7 cm which may be obstructing the gastroesophageal junction as no oral contrast is visualized in the stomach. This could represent retained/impacted food products the right clinical setting. Consider endoscopy as clinically indicated. 2. Increased subpleural reticular markings with groundglass opacity in the lung bases which may reflect fibrotic change versus atelectasis. 3. Hepatic steatosis. This critical result was discussed with Jillian Corbett at 9:55 AM on 07/11/2023 and it was ascertained that the content and urgency of the report was understood at the time of direct communication. Fleischner guidelines were followed.
--- NOTE | 2023-07-11 08:19 | ECG_ITS ---
Test Reason : htn/epigastric pain Blood Pressure : / mmHG Vent. Rate : 077 BPM Atrial Rate : 077 BPM P-R Int : 164 ms QRS Dur : 088 ms QT Int : 402 ms P-R-T Axes : 073 -20 061 degrees QTc Int : 454 ms Normal sinus rhythm Minimal voltage criteria for LVH, may be normal variant ( Mynor product ) Borderline ECG When compared with ECG of 09-JUL-2023 13:39, No significant change was found Referred By: Generic ED Physician Electronically Signed By:JAVID HAIRSTON
--- NOTE | 2023-07-11 08:52 | ED_ITS ---
HPI - Abdominal Pain General Chief Complaint: Abdominal Pain Stated Complaint: Diff Swallowing Upper Stomach Pain Time Seen by Provider: 07/11/23 08:32 Source: patient Mode of arrival: ambulatory History of Present Illness HPI narrative: This is a 47-year-old female who arrives after having eaten a hot dog on Sunday and stating that she felt like it may have gotten stuck in her esophagus as she was unable to keep down he any further liquids thereafter, she was seen here on Sunday for epigastric pain, given Zofran and discharged. Since that time patient states that she has continued to be unable to tolerate any liquids or food. She otherwise denies fevers or chills and only vomits when she attempts to drink liquids. Related Data Home Medications Medication Instructions Recorded Confirmed prednisone 5 mg tablet 1.5 tab PO DAILY 08/17/22 08/17/22 Previous Rx's Medication Instructions Recorded pantoprazole 40 mg granules 40 mg PO DAILY #30 ea 09/23/20 delayed-release for susp in packet (Protonix) ondansetron 4 mg disintegrating 4 mg PO Q8H PRN nausea and 07/09/23 tablet vomiting #10 tabs sucralfate 1 gram tablet (Carafate) 1 g PO AC #90 tabs 07/09/23 Allergies Allergy/AdvReac Type Severity Reaction Status Date / Time No Known Allergies Allergy Verified 07/11/23 08:12 Review of Systems Review of Systems Pertinent positives and negatives as stated in HPI PMFSH Past Medical History Source: nursing notes reviewed Medical History Alcohol abuse Asthma Cirrhosis Hypertension Hypothyroid Lupus Surgical History H/O hand surgery Family History Family History Other No family history of coronary artery disease Social History Social History Alcohol intake: current Alcohol intake frequency: a few times a week Alcohol type: beer and hard liquor Patient Tobacco Use Status: Never used Tobacco Smoked in Last 30 Days: No Use of substances other than those prescribed or required for medical reasons: No Substance Use Type: Marijuana Substance Use Frequency: Occasionally Are you DNR?: No Advance Directives: No Advance Directives Information Provided: No service: No Current occupational status: employed Physical Exam ED Vital Signs: Vital Signs - 24 hr 07/11/23 08:12 07/11/23 08:27 07/11/23 10:09 Temperature 98 F 98.5 F 98.1 F Pulse Rate 95 87 74 Respiratory Rate 16 20 20 Blood Pressure 158/132 H 151/108 H 173/90 H Pulse Oximetry 98 95 96 Oxygen Delivery Method Room Air Room Air Room Air 07/11/23 11:46 07/11/23 12:26 07/11/23 14:24 Temperature 97.8 F 97.2 F Pulse Rate 92 73 78 Respiratory Rate 14 16 18 Blood Pressure 174/115 H 152/89 H 171/87 H Pulse Oximetry 100 99 96 Oxygen Delivery Method Room Air Room Air Room Air BMI result Body Mass Index 27.2 VITAL SIGNS: Reviewed. GENERAL: Well developed, well nourished, in no acute distress. HEAD: Normocephalic/atraumatic EYES: PERRLA, EOMI EARS: Ext canals without abnormality NOSE: Nares patent bilateral OROPHARYNX: no oral lesions noted, posterior pharynx clear, no oral thrush or posterior pharynx abnormalities noted NECK: Supple, no adenopathy LUNGS: Normal breath sounds. No adventitious sounds or accessory muscle use. SpO2<95> CARDIOVASCULAR: Regular rate and rhythm without noted murmurs ABDOMEN: Soft, non-tender, non-distended with bowel sounds. MUSCULOSKELETAL: No tenderness, deformities, or effusions noted on gross inspection. EXTREMITIES: No cyanosis, clubbing or edema. SKIN: Inspection of the skin reveals no rashes NEUROLOGIC: Alert and oriented x 4. Strength and sensation to light touch were grossly intact x 4. Medical Decision Making Medical Decision Making MDM Narrative: 47-year-old female with history and clinical presentation, DDX: Food impaction and doubt esophagitis, patient strongly endorses that she has had no further alcohol consumption since approximately 1 month ago. Basic labs are pending, suspect a component of dehydration and will order IV fluid resuscitation as well. CT scan with small amount of oral Gastrografin will be administered for assessment of food impaction. 0947: I reviewed CT scan of the chest which appears to be consistent with likely distal esophageal food impaction, pending official radiology read and have consult id Gastroenterology at this time. Patient has not tolerated any oral liquid since Sunday evening, however I have made her NPO. I reviewed all investigations and hematologic indices are grossly within normal limits without leukocytosis/left shift and no evidence of anemia or thrombocytopenia. Chemistry indices do not demonstrate any DEMARCO but there is an elevated BUN likely consistent with a mild dehydration status since patient has been unable to tolerate oral intake and there is noted elevation of liver enzymes which could reflect patient's persistent nausea and vomiting as there is no right upper quadrant pain to further support the possibility of a cholecystitis, patient is afebrile and otherwise no evidence of leukocytosis to further support a cholecystitis. 0954: I discussed case with Dr. Barkley and he will see the patient and likely take patient to endoscopy suite, I also discussed case with Radiology who gave me the official read of a 1.5 cm x 2 cm distal esophageal block. Patient has been given all results and findings. Plan for surgery @ 1500. Differential Diagnosis Differential Diagnoses: The differential diagnosis associated with the pr esentation includes Please see the discussion above Admission/Observation Consideration of admission/observation: Escalation of care including admission/observation considered Please see the discussion above Consult Healthcare Provider Management of the patient was discussed with: Compacting Machine Operator/Tender Please see the discussion above Lab Data MDM Lab Attestation statement: I reviewed the patient's lab results. Please see the discussion above 07/11/23 09:06 07/11/23 09:06 Labs: Lab Results 07/11/23 07/11/23 07/11/23 Range/Units 09:06 09:06 09:06 WBC 10.7 (4.8-10.8) X10*3/uL RBC 5.03 (4.20-5.50) X10*6/uL Hgb 14.6 (12.0-16.0) g/dl Hct 45.0 (37.0-47.0) % MCV 89.5 (80.0-98.0) fL MCH 29.0 (27.0-33.0) pg MCHC 32.4 (31.0-35.0) g/dl RDW 12.3 (11.0-16.0) % Plt Count 316 (160-400) X10*3/uL MPV 9.6 (9.4-12.3) fL Immature Gran % (Auto) 0.2 (0.0-0.4) % Neut % (Auto) 62.1 (45-73) % Lymph % (Auto) 22.8 (20-40) % [place] % (Auto) 13.3 H (2-11) % Eos % (Auto) 1.1 (0-4) % Baso % (Auto) 0.5 (0-2) % Lymph # (Auto) 2.4 (1.2-4.9) X10*3/uL [place] # (Auto) 1.4 H (0.1-1.2) X10*3/uL Eos # (Auto) 0.1 (0.0-0.4) X10*3/uL Baso # (Auto) 0.1 (0.0-0.2) X10*3/uL Abs Immat Gran (auto) 0.02 (0.00-0.03) X10*3/uL Absolute Neuts (auto) 6.6 (2.0-8.3) x10*3/uL Absolute Nucleated RBC 0.000 (0.0-0.012) X10*3/uL Nucleated RBC % (auto) 0.0 (0.0-0.2) /100WBC Sodium 145 (135-145) mmol/L Potassium 4.3 (3.3-5.1) mmol/L Chloride 111 H (96-108) mmol/L Carbon Dioxide 21 L (22-29) mmol/L Anion Gap 17 (12-20) BUN 24 H (9-16) mg/dL Creatinine 0.88 (0.5-1.4) mg/dL Estim Creat Clear Calc 57.3 Estimated GFR > 60 Random Glucose 97 (60-115) mg/dL Calcium 10.2 D (8.4-10.2) mg/dL Magnesium 2.4 (1.6-2.6) mg/dL Total Bilirubin 1.1 H (0.0-1.0) mg/dL AST 234 H (5-31) U/L ALT 133 H (0-31) U/L Alkaline Phosphatase 117 (39-117) U/L Total Protein 9.9 H (6.5-8.0) g/dL Albumin 4.3 (3.5-5.0) g/dL Lipase 77 (8-78) U/L Urine Color Urine Appearance Urine pH (5.0-9.0) Ur Specific [place] (1.005-1.025) Urine Protein (Neg-Trace) mg/dL Urine Glucose (UA) (Negative) mg/dL Urine Ketones (Negative) mg/dL Urine Blood (Negative) Urine Nitrite (Negative) Ur Leukocyte Esterase (Negative) Ethyl Alcohol < 10 mg/dL 07/11/23 Range/Units 14:24 WBC (4.8-10.8) X10*3/uL RBC (4.20-5.50) X10*6/uL Hgb (12.0-16.0) g/dl Hct (37.0-47.0) % MCV (80.0-98.0) fL MCH (27.0-33.0) pg MCHC (31.0-35.0) g/dl RDW (11.0-16.0) % Plt Count (160-400) X10*3/uL MPV (9.4-12.3) fL Immature Gran % (Auto) (0.0-0.4) % Neut % (Auto) (45-73) % Lymph % (Auto) (20-40) % [place] % (Auto) (2-11) % Eos % (Auto) (0-4) % Baso % (Auto) (0-2) % Lymph # (Auto) (1.2-4.9) X10*3/uL [place] # (Auto) (0.1-1.2) X10*3/uL Eos # (Auto) (0.0-0.4) X10*3/uL Baso # (Auto) (0.0-0.2) X10*3/uL Abs Immat Gran (auto) (0.00-0.03) X10*3/uL Absolute Neuts (auto) (2.0-8.3) x10*3/uL Absolute Nucleated RBC (0.0-0.012) X10*3/uL Nucleated RBC % (auto) (0.0-0.2) /100WBC Sodium (135-145) mmol/L Potassium (3.3-5.1) mmol/L Chloride (96-108) mmol/L Carbon Dioxide (22-29) mmol/L Anion Gap (12-20) BUN (9-16) mg/dL Creatinine (0.5-1.4) mg/dL Estim Creat Clear Calc Estimated GFR Random Glucose (60-115) mg/dL Calcium (8.4-10.2) mg/dL Magnesium (1.6-2.6) mg/dL Total Bilirubin (0.0-1.0) mg/dL AST (5-31) U/L ALT (0-31) U/L Alkaline Phosphatase (39-117) U/L Total Protein (6.5-8.0) g/dL Albumin (3.5-5.0) g/dL Lipase (8-78) U/L Urine Color Yellow Urine Appearance Hazy Urine pH 5.5 (5.0-9.0) Ur Specific [place] >= 1.030 H (1.005-1.025) Urine Protein Trace (Neg-Trace) mg/dL Urine Glucose (UA) Negative (Negative) mg/dL Urine Ketones >=80 (Negative) mg/dL Urine Blood Large (3+) H (Negative) Urine Nitrite Negative (Negative) Ur Leukocyte Esterase Negative (Negative) Ethyl Alcohol mg/dL Independent Interpretation I performed an independent interpretation of an: EKG Interpretation: Normal sinus rhythm, HR-77, no STEMI, IA/QRS/QTC is within normal limits. Radiology Impression Radiologist Impression: Please see the discussion above External Record Review External record reviewed: Outpatient record, Prior outpatient labs and Prior outpatient radiology Medications Administered Discontinued Medications Generic Name Dose Route Start Last Admin Trade Name Freq PRN Reason Stop Dose Admin Sodium Chloride 1,000 mls @ 999 mls/hr 07/11/23 09:15 07/11/23 11:22 Ns IV 07/11/23 10:15 Infused .Q1H1M ANGELA Infusion Critical Care Time Critical Care Time Critical Care Time: Yes Total Critical Care Time: 30 Attestation: I personally attest to this time spent taking care of the patient. Discharge Plan Discharge Clinical Impression: Esophageal obstruction due to food impaction, Dehydration Patient Disposition: Still a Patient
[2023-07-11 09:10] LABS: MANUAL DIFF FLAG NO
[2023-07-11 09:13] LABS: Basophils Absolute Auto 0.1 X10*3/uL (0.0-0.2); Basophils Percent Auto 0.5 % (0-2); Eosinophils Absolute Auto 0.1 X10*3/uL (0.0-0.4); Eosinophils Percent Auto 1.1 % (0-4); Hemoglobin 14.6 g/dl (12.0-16.0); Imm Gran Abs Auto 0.02 X10*3/uL (0.00-0.03); Imm Gran Pct Auto 0.2 % (0.0-0.4); Lymphocytes Absolute Auto 2.4 X10*3/uL (1.2-4.9); Lymphocytes Percent Auto 22.8 % (20-40); Mean Corpuscular HGB Conc 32.4 g/dl (31.0-35.0); Mean Corpuscular Volume 89.5 fL (80.0-98.0); Mean Platelet Volume 9.6 fL (9.4-12.3); Monocytes Absolute Auto 1.4 X10*3/uL (0.1-1.2); Monocytes Percent Auto 13.3 % (2-11); Neutrophils Absolute Auto 6.6 x10*3/uL (2.0-8.3); Neutrophils Percent Auto 62.1 % (45-73); Platelet Count 316 X10*3/uL (160-400); Red Blood Count 5.03 X10*6/uL (4.20-5.50); Red Cell Distribution Width 12.3 % (11.0-16.0); White Blood Count 10.7 X10*3/uL (4.8-10.8)
[2023-07-11 09:25] LABS: Ethanol < 10 mg/dL
[2023-07-11 09:26] LABS: Alanine Aminotransferase 133 U/L (0-31); Albumin Level 4.3 g/dL (3.5-5.0); Alkaline Phosphatase 117 U/L (39-117); Anion Gap 17 (12-20); Aspartate Amino Transferase 234 U/L (5-31); Bilirubin Total 1.1 mg/dL (0.0-1.0); Blood Urea Nitrogen 24 mg/dL (9-16); Calcium 10.2 mg/dL (8.4-10.2); Carbon Dioxide 21 mmol/L (22-29); Chloride 111 mmol/L (96-108); Creatinine Clr Calc Pharmacy 57.3; Estimated Glomerular Filt Rate > 60; Glucose Random 97 mg/dL (60-115); Lipase 77 U/L (8-78); Magnesium 2.4 mg/dL (1.6-2.6); Potassium 4.3 mmol/L (3.3-5.1); Sodium 145 mmol/L (135-145); Total Protein 9.9 g/dL (6.5-8.0)
[2023-07-11] MEDS: 0.9 % Sodium Chloride 1,000 ML 999 ML IV (09:36)
--- NOTE | 2023-07-11 13:02 | PC.NURSE ---
this rn spoke with OR main desk, pt endoscopy tentatively scheduled for 1500. pt to be picked up around 1415.
--- NOTE | 2023-07-11 13:04 | PC.NURSE ---
Addendum entered by Kenyetta Epperson RN 07/11/23 13:05: charge and Dr. Corbett aware Original Note: this rn spoke with OR main desk, pt endoscopy tentatively scheduled for 1500. pt would be picked up around 1415.
--- NOTE | 2023-07-11 14:17 | P.CONAN_ITS ---
[facility] Active Problems Active Problems: All Active Problems (Updated 07/11/23 @ 10:00 by Jillian Corbett MD) Esophageal obstruction due to food impaction (Acute) Dehydration (Acute) Lactic acidosis (Acute) Alcohol abuse (Acute) Acetaminophen toxicity (Acute) Acute hepatitis (Acute) Elevated LFTs (Acute) Coagulopathy (Acute) DEMARCO (acute kidney injury) (Acute) Past Medical History Medical History Alcohol abuse Asthma Cirrhosis Hypertension Hypothyroid Lupus Family History Family History Other No family history of coronary artery disease Surgical History Surgical History H/O hand surgery History of Problems with Anesthesia: No Social History Social History Alcohol intake: current Alcohol intake frequency: a few times a week Alcohol type: beer and hard liquor Patient Tobacco Use Status: Never used Tobacco Smoked in Last 30 Days: No Use of substances other than those prescribed or required for medical reasons: No Substance Use Type: Marijuana Substance Use Frequency: Occasionally Are you DNR?: No Advance Directives: No Advance Directives Information Provided: No service: No Current occupational status: employed Meds Allergies Allergy/AdvReac Type Severity Reaction Status Date / Time No Known Allergies Allergy Verified 07/11/23 08:12 Home Medications Medication Instructions Recorded Confirmed Last Taken Type prednisone 5 mg tablet 1.5 tab PO DAILY 08/17/22 08/17/22 Unknown History Exam Exam Date and Time: July 11, 2023 1417 Height,Weight and Vital Signs: Height 4 ft 10 in Weight 58.967 kg Last Vital Signs Temp 97.8 F 07/11/23 12:26 Pulse 73 07/11/23 12:26 Resp 16 07/11/23 12:26 BP 152/89 H 07/11/23 12:26 Pulse Ox 99 07/11/23 12:26 O2 Del Method Room Air 07/11/23 12:26 Pertinent Lab Results Pertinent Lab Results: Laboratory Tests 07/11/23 07/11/23 07/11/23 09:06 09:06 09:06 WBC 10.7 RBC 5.03 Hgb 14.6 Hct 45.0 MCV 89.5 MCH 29.0 MCHC 32.4 RDW 12.3 Plt Count 316 MPV 9.6 Immature Gran % (Auto) 0.2 Neut % (Auto) 62.1 Lymph % (Auto) 22.8 [place] % (Auto) 13.3 H Eos % (Auto) 1.1 Baso % (Auto) 0.5 Lymph # (Auto) 2.4 [place] # (Auto) 1.4 H Eos # (Auto) 0.1 Baso # (Auto) 0.1 Abs Immat Gran (auto) 0.02 Absolute Neuts (auto) 6.6 Absolute Nucleated RBC 0.000 Nucleated RBC % (auto) 0.0 Sodium 145 Potassium 4.3 Chloride 111 H Carbon Dioxide 21 L Anion Gap 17 BUN 24 H Creatinine 0.88 Estim Creat Clear Calc 57.3 Estimated GFR > 60 Random Glucose 97 Calcium 10.2 D Magnesium 2.4 Total Bilirubin 1.1 H AST 234 H ALT 133 H Alkaline Phosphatase 117 Total Protein 9.9 H Albumin 4.3 Lipase 77 Ethyl Alcohol < 10 Airway Mallampati Class: II TM Dist: >3cm Neck ROM: Full Loose/Missing/Broken Teeth: No Heart: RRR Lungs: CTA Assessment and Plan Assessment Anesthesia Assessment: Anesthesia Plan Discussed and Chart Reviewed Final Anesthetic Review History of Problems with Anesthesia: No NPO: Yes ASA Class: III Final Preanesthetic Review: Meds/Allgs Chart Reviewed, Consent Obtained/Reviewed and Anes Risks/Benef Reviewed Patient Risk: Intermediate Procedure Risk: Intermediate Anesthetic Plan Anesthetic Plan: GA Disposition: Standard PACU
[2023-07-11 14:32] LABS: Appearance Urine Hazy; Color Urine Yellow; Glucose Urine UA Negative (Negative); Leukocyte Esterase Urine Negative (Negative); Nitrite Urine Negative (Negative); PH 5.5 (5.0-9.0); Specific Gravity - Urine >= 1.030 (1.005-1.025); UMIC TRIGGER UACC YES; Urine Blood Large (3+) (Negative); Urine Ketones >=80 mg/dL (Negative); Urine Protein Trace mg/dL (Neg-Trace)
[2023-07-11 14:37] LABS: Bacteria Urine 1+ (None Seen); Hyaline Casts Urine 0-2 /LPF (0-2); RBC Urine 0-2 /HPF (0-2); WBC Urine 0-5 /HPF (0-5)
--- NOTE | 2023-07-11 14:40 | PC.NURSE ---
late entry: upon arrival to short stay, pt asked by this RN if she gave urine sample for order (not collected in ED) for UA, C&S. call to ED for collection. add-on ucg. expedited to lab and lab to phone whenever results are available. order administrator/collected for UCG. Per Dr. Barkley and Dr. Ackerman from Anesthesia, case deemed emergent and OK to proceed without results.
[2023-07-11 14:48] LABS: UPreg QC Valid YES; Urine Pregnancy NEGATIVE (NEGATIVE)
--- NOTE | 2023-07-11 15:16 | MHC.SHP ---
Pre-Procedural Eval Section A Date of Service: 07/11/23 The patient is an INPATIENT: No Changes since office visit: No Cold of Flu in the past 2 weeks, No New Medical Problems, No Changes in Medication and No Patient answered all questions The History & Physical has been completed within 30 days and I have reviewed it.: Yes Section B Chief Complaint: Diff Swallowing Upper Stomach Pain Allergies: Allergies Allergy/AdvReac Type Severity Reaction Status Date / Time No Known Allergies Allergy Verified 07/11/23 08:12 Plan I have reviewed the history and physical and performed a pertinent physical examination on my patient. No changes have occurred unless specified. Time Spent With Patient Time: Total time managing care of this patient today ____ minutes.
--- NOTE | 2023-07-11 15:17 | P.BOP_ITS ---
Brief Operative Note Date of Service: 07/11/23 Pre-op diagnosis: fb esophagus Post-op diagnosis: same Surgeon: Rene Barkley Anesthesia: GETA Was an Professor Criminal Justice used for this Procedure?: No Estimated blood loss (mL): 2 Pathology: none sent Condition: stable Disposition: PACU
--- NOTE | 2023-07-12 00:17 | CONS_ITS ---
DATE OF SERVICE: 07/11/2023 REFERRING PHYSICIAN: Dr. Corbett REASON FOR CONSULTATION: Foreign body of the esophagus. HISTORY OF PRESENT ILLNESS: The patient is a pleasant 47-year-old woman who was admitted to the emergency room today with complaints of difficulty swallowing. Symptoms began 3 days ago after eating a hot dog and she has had difficulty swallowing sense. She came to the emergency room on July 09 with complaints of nausea, vomiting, diarrhea, as well as chest pain but was not diagnosed with a food impaction. She reports difficulty swallowing continued over the last 48 hours and she returned to the emergency room where she was re-evaluated because of suspected food impaction. She underwent CT scanning of the chest with Gastrografin administration, which confirmed what appears to be a distal food impaction. The patient denies any prior history of significant dysphagia. She has rare episodes of reflux for which she takes [id number] antacids. There has been no hematemesis or melena. She has never undergone upper endoscopy. PAST MEDICAL HISTORY: 1. Hypertension. 2. Hypothyroidism. 3. Lupus. 4. Alcohol abuse, with a history of liver failure, currently in remission per patient. 5. Asthma. CURRENT MEDICATIONS: Her current medication list is reviewed in the chart. ALLERGIES: THERE ARE NONE REPORTED. FAMILY HISTORY: This is negative for GI malignancy per the patient. SOCIAL HISTORY: She formally smoked, but does not currently. She denies alcohol intake since her episode of liver failure. REVIEW OF SYSTEMS: SKIN: No pruritus. HEENT: Negative. CARDIOPULMONARY: She denies shortness of breath or chest pain. GASTROINTESTINAL: As above. GENITOURINARY: Negative. NEUROPSYCHIATRIC: Negative. PHYSICAL EXAMINATION: GENERAL: Shows a pleasant female, lying comfortably on the stretcher. VITAL SIGNS: Reviewed in the electronic medical record and are stable. SKIN: Anicteric. HEENT: Shows no scleral icterus. NECK: Without lymphadenopathy or thyromegaly. LUNGS: Clear. HEART: Shows a regular rate and rhythm. S1, S2. No murmur. ABDOMEN: Soft without focal masses or tenderness. Bowel sounds are present. No organomegaly is noted. EXTREMITIES: Without edema. LABORATORY DATA AND IMAGING STUDIES: Reviewed. IMPRESSION: Foreign body, esophagus. I discussed endoscopy with the patient including risks and benefits of the procedure. She understands these and agrees to proceed. This is to be arranged as soon as possible. MD LESVIA Matamoros/NAS / [phone]
--- NOTE | 2023-07-12 01:17 | OP_ITS ---
DATE OF SERVICE: 07/11/2023 SURGEON: Rene Barkley MD INDICATIONS: Foreign body of the esophagus. PREOPERATIVE DIAGNOSIS: POSTOPERATIVE DIAGNOSIS: PROCEDURE PERFORMED: ESTIMATED BLOOD LOSS: COMPLICATIONS: ANESTHESIA: ASSISTANTS: SPECIMENS: PROCEDURE: Upper endoscopy with removal of foreign body. MEDICATIONS: General anesthesia. DESCRIPTION OF PROCEDURE: A history and physical were performed. The risks and benefits of the procedure were explained to the patient. Informed consent was obtained. The patient was placed in the left lateral decubitus position. The Olympus video gastroscope was introduced into the esophagus, stomach, and duodenum. Examination was performed. The scope was removed. She tolerated the procedure well and was returned to recovery area in stable condition. FINDINGS: Esophagus: There was a large food impaction in the distal esophagus. This was broken up into smaller pieces with a tripod and was gently pushed through into the stomach. The bolus was located between 30 and 35 cm at the distal esophagus and there was associated esophagitis. No stricture was identified. No ring was seen. The esophagus was carefully irrigated and was completely clear of food material and liquid at the termination of the procedure. Stomach: The stomach showed no evidence of masses, ulcers, or polyps. Duodenum: The bulb and second portion were normal. IMPRESSION: Foreign body, esophagus. RECOMMENDATIONS: 1. Omeprazole 20 mg daily for a total of 8 weeks. 2. Follow up as an outpatient. MD LESVIA Matamoros/NAS / [phone]
== END 2023-07-11 10:00 | disposition home or self-care (01) ==
LOC: HO.ED 10:00 → HO.SSS 10:03
PROVIDERS: Anesthesiology; Emergency Provider Student in an Organized Health Care Education/Training Program; PCP Internal Medicine; Visit Provider Internal Medicine Gastroenterology
PROC: 0DJ08ZZ Inspection of Upper Intestinal Tract, Via Natural or Artificial Opening Endoscopic (ICD-10-PCS; CPT 43235; principal; 2023-07-11 14:50)
DX: T18.120A Food in esophagus causing compression of trachea, initial encounter (principal); R13.10 Dysphagia, unspecified; E86.0 Dehydration; K20.80 Other esophagitis without bleeding; R10.13 Epigastric pain; F10.10 Alcohol abuse, uncomplicated; F12.90 Cannabis use, unspecified, uncomplicated; K74.60 Unspecified cirrhosis of liver; I10 Essential (primary) hypertension; E03.9 Hypothyroidism, unspecified; J45.909 Unspecified asthma, uncomplicated; M32.9 Systemic lupus erythematosus, unspecified; Z79.52 Long term (current) use of systemic steroids; Z79.899 Other long term (current) drug therapy
CPT/HCPCS: 43247; 36415; 71250; 80053; 80307; 81001; 81025; 83690; 83735; 85025; 93005; 96360; 96361; 99285; J0330; J3010

== ENCOUNTER 2023-07-13 10:19 | Outpatient (REF) | payer OTHER, SELFPAY ==
[2023-07-13 10:35] LABS: MANUAL DIFF FLAG NO
[2023-07-13 10:52] LABS: Basophils Percent Auto 0.5 % (0-2); Eosinophils Absolute Auto 0.1 X10*3/uL (0.0-0.4); Hemoglobin 12.7 g/dl (12.0-16.0); Imm Gran Abs Auto 0.01 X10*3/uL (0.00-0.03); Imm Gran Pct Auto 0.2 % (0.0-0.4); Lymphocytes Absolute Auto 1.5 X10*3/uL (1.2-4.9); Mean Corpuscular HGB Conc 31.8 g/dl (31.0-35.0); Mean Corpuscular Hemoglobin 28.5 pg (27.0-33.0); Mean Corpuscular Volume 89.9 fL (80.0-98.0); Mean Platelet Volume 9.9 fL (9.4-12.3); Monocytes Absolute Auto 0.9 X10*3/uL (0.1-1.2); Monocytes Percent Auto 14.6 % (2-11); Neutrophils Absolute Auto 3.6 x10*3/uL (2.0-8.3); Neutrophils Percent Auto 57.7 % (45-73); Platelet Count 269 X10*3/uL (160-400); Red Blood Count 4.45 X10*6/uL (4.20-5.50); Red Cell Distribution Width 11.7 % (11.0-16.0); White Blood Count 6.2 X10*3/uL (4.8-10.8)
[2023-07-13 11:19] LABS: Alanine Aminotransferase 183 U/L (0-31); Albumin Level 3.5 g/dL (3.5-5.0); Alkaline Phosphatase 89 U/L (39-117); Anion Gap 14 (12-20); Aspartate Amino Transferase 309 U/L (5-31); Bilirubin Total 0.7 mg/dL (0.0-1.0); Blood Urea Nitrogen 6 mg/dL (9-16); Calcium 9.1 mg/dL (8.4-10.2); Carbon Dioxide 20 mmol/L (22-29); Chloride 105 mmol/L (96-108); Estimated Glomerular Filt Rate > 60; Glucose Random 95 mg/dL (60-115); Potassium 3.3 mmol/L (3.3-5.1); Sodium 136 mmol/L (135-145); Total Protein 7.6 g/dL (6.5-8.0)
== END 2023-07-13 10:20 | disposition home or self-care (01) ==
LOC: HO.LAB 10:19
PROVIDERS: PCP Internal Medicine; Visit Provider Internal Medicine
DX: I10 Essential (primary) hypertension (principal); E03.9 Hypothyroidism, unspecified; R79.89 Other specified abnormal findings of blood chemistry
CPT/HCPCS: 36415; 80053; 85025

== ENCOUNTER 2023-07-19 16:08 | Outpatient (REF) | payer OTHER, SELFPAY ==
[2023-07-19 16:21] LABS: MANUAL DIFF FLAG NO
[2023-07-19 17:27] LABS: Basophils Percent Auto 0.5 % (0-2); Eosinophils Absolute Auto 0.1 X10*3/uL (0.0-0.4); Eosinophils Percent Auto 1.6 % (0-4); Hematocrit 40.8 % (37.0-47.0); Hemoglobin 13.3 g/dl (12.0-16.0); Imm Gran Abs Auto 0.02 X10*3/uL (0.00-0.03); Imm Gran Pct Auto 0.3 % (0.0-0.4); Lymphocytes Absolute Auto 1.2 X10*3/uL (1.2-4.9); Lymphocytes Percent Auto 19.4 % (20-40); Mean Corpuscular HGB Conc 32.6 g/dl (31.0-35.0); Mean Corpuscular Hemoglobin 28.8 pg (27.0-33.0); Mean Corpuscular Volume 88.3 fL (80.0-98.0); Mean Platelet Volume 10.5 fL (9.4-12.3); Monocytes Absolute Auto 0.6 X10*3/uL (0.1-1.2); Monocytes Percent Auto 9.1 % (2-11); Neutrophils Absolute Auto 4.3 x10*3/uL (2.0-8.3); Neutrophils Percent Auto 69.1 % (45-73); Platelet Count 390 X10*3/uL (160-400); Red Blood Count 4.62 X10*6/uL (4.20-5.50); Red Cell Distribution Width 12.2 % (11.0-16.0); White Blood Count 6.2 X10*3/uL (4.8-10.8)
[2023-07-19 18:12] LABS: Alanine Aminotransferase 108 U/L (0-31); Albumin Level 3.6 g/dL (3.5-5.0); Alkaline Phosphatase 118 U/L (39-117); Anion Gap 11 (12-20); Aspartate Amino Transferase 135 U/L (5-31); Bilirubin Total 0.5 mg/dL (0.0-1.0); Blood Urea Nitrogen 4 mg/dL (9-16); Calcium 9.7 mg/dL (8.4-10.2); Carbon Dioxide 25 mmol/L (22-29); Chloride 106 mmol/L (96-108); Estimated Glomerular Filt Rate > 60; Glucose Random 99 mg/dL (60-115); Potassium 4.3 mmol/L (3.3-5.1); Sodium 138 mmol/L (135-145); Total Protein 8.2 g/dL (6.5-8.0)
[2023-07-19 18:26] LABS: Free T4 (Free Thyroxine) 1.59 ng/dL (0.71-1.85); Thyroid Stimulating Hormone 0.96 uIU/mL (0.32-4.0)
[2023-07-19 18:32] LABS: Vitamin B12 617 pg/mL (200-900)
== END 2023-07-19 16:09 | disposition home or self-care (01) ==
LOC: HO.LAB 16:08
PROVIDERS: PCP Internal Medicine; Visit Provider Internal Medicine
DX: I10 Essential (primary) hypertension (principal); E03.9 Hypothyroidism, unspecified; R79.89 Other specified abnormal findings of blood chemistry
CPT/HCPCS: 36415; 80053; 82607; 84439; 84443; 85025

== ENCOUNTER 2024-11-14 15:11 | Outpatient (REF) | payer OTHER, SELFPAY ==
[2024-11-14 15:55] LABS: Basophils Absolute Auto 0.1 X10*3/uL (0.0-0.2); Eosinophils Percent Auto 0.4 % (0-4); PLT CLUMP 1; Red Cell Distribution Width 13.9 % (11.0-16.0); SCAN SMEAR FLAG 1
[2024-11-14 15:57] LABS: Hematocrit 32.3 % (37.0-47.0); Hemoglobin 11.2 g/dl (12.0-16.0); Imm Gran Abs Auto 0.02 X10*3/uL (0.00-0.03); Imm Gran Pct Auto 0.4 % (0.0-0.4); Lymphocytes Absolute Auto 1.5 X10*3/uL (1.2-4.9); Lymphocytes Percent Auto 31.5 % (20-40); MANUAL DIFF FLAG SCAN; Mean Corpuscular HGB Conc 34.7 g/dl (31.0-35.0); Mean Corpuscular Hemoglobin 32.1 pg (27.0-33.0); Mean Corpuscular Volume 92.6 fL (80.0-98.0); Monocytes Absolute Auto 0.9 X10*3/uL (0.1-1.2); Monocytes Percent Auto 17.7 % (2-11); Neutrophils Absolute Auto 2.4 x10*3/uL (2.0-8.3); Red Blood Count 3.49 X10*6/uL (4.20-5.50)
--- OUTSIDE RECORDS SUMMARY | 2024-11-14 16:23 | XMS_ITS | Patient Health Record ---
Author Organization [facility] Address [address] [place] [address] Care Team Providers Care Data Collector Name Role Phone Damián Roberts MD Primary Care Provider Rene Lora Jr Unavailable REASON FOR REFERRAL No Information SOCIAL HISTORY Sex Assigned At : Social History Observation Description Sex Assigned At Unknown PLAN OF TREATMENT No Information Insurance Providers Payer Name Payer Address Payer Phone Subscriber Number Group Number Insured Name Patient Relationship to Insured Coverage Start Date Coverage End Date [facility] [address] [place] [address] [phone] [id number] STACEY TRIMBLE Self - patient is the insured
--- OUTSIDE RECORDS SUMMARY | 2024-11-14 16:23 | XMS_ITS ---
Author Organization [facility] Address [address] [place] [address] Care Team Providers Care Microsoft Developer Name Role Phone Damián Roberts MD Primary Care Provider Unavaila Rene Heller Jr [phone] REASON FOR VISIT Food Bolus Encounters Encounter Location Date Provider Diagnosis [facility] Inpatient [address], [place] [id number] 07/11/2023 Rene Barkley Jr PLAN OF TREATMENT No Information
[2024-11-14 16:54] LABS: Vitamin B12 1338 pg/mL (200-900)
[2024-11-14 17:49] LABS: Alanine Aminotransferase 54 U/L (0-31); Albumin Level 2.6 g/dL (3.5-5.0); Alkaline Phosphatase 171 U/L (39-117); Anion Gap 11 (12-20); Aspartate Amino Transferase 318 U/L (5-31); Bilirubin Total 1.2 mg/dL (0.0-1.0); Blood Urea Nitrogen 3 mg/dL (9-16); Calcium 8.3 mg/dL (8.4-10.2); Carbon Dioxide 22 mmol/L (22-29); Chloride 104 mmol/L (96-108); Cholesterol 157 mg/dL (<200); Estimated Glomerular Filt Rate > 60; Glucose Random 116 mg/dL (60-115); Potassium 3.6 mmol/L (3.3-5.1); Sodium 133 mmol/L (135-145); Total Protein 9.1 g/dL (6.5-8.0)
[2024-11-14 18:08] LABS: Free T4 (Free Thyroxine) 1.62 ng/dL (0.71-1.85); Thyroid Stimulating Hormone 2.53 uIU/mL (0.32-4.0)
[2024-11-14 18:39] LABS: Platelet Count 58 X10*3/uL (160-400); SLIDE REVIEW VERIFIED; White Blood Count 4.8 X10*3/uL (4.8-10.8)
== END 2024-11-14 15:12 | disposition home or self-care (01) ==
LOC: HO.LAB 15:11
PROVIDERS: PCP Internal Medicine; Visit Provider Internal Medicine
DX: J45.909 Unspecified asthma, uncomplicated (principal); I10 Essential (primary) hypertension; E03.9 Hypothyroidism, unspecified; K21.9 Gastro-esophageal reflux disease without esophagitis
CPT/HCPCS: 36415; 80053; 82306; 82465; 82607; 82746; 84439; 84443; 85025

== ENCOUNTER 2025-06-18 15:29 | Outpatient (REF) | payer OTHER, SELFPAY ==
[2025-06-18 17:12] LABS: NRBC Abs Auto 0.000 X10*3/uL (0.0-0.012); NRBC Pct Auto 0.0 /100WBC (0.0-0.2); PLT CLUMP 1; SCAN SMEAR FLAG 1
[2025-06-18 17:14] LABS: Hematocrit 31.0 % (37.0-47.0); Hemoglobin 11.0 g/dl (12.0-16.0); Imm Gran Abs Auto 0.01 X10*3/uL (0.00-0.03); Imm Gran Pct Auto 0.2 % (0.0-0.4); Lymphocytes Absolute Auto 1.4 X10*3/uL (1.2-4.9); MANUAL DIFF FLAG SCAN; Mean Corpuscular HGB Conc 35.5 g/dl (31.0-35.0); Mean Corpuscular Hemoglobin 33.1 pg (27.0-33.0); Mean Corpuscular Volume 93.4 fL (80.0-98.0); Red Blood Count 3.32 X10*6/uL (4.20-5.50)
[2025-06-18 17:18] LABS: Hemoglobin A1C 93.5544 umol/L; Total Hemoglobin (HGBA1C) 3019.7182 umol/L
[2025-06-18 17:21] LABS: Platelet Count 67 X10*3/uL (160-400); White Blood Count 4.8 X10*3/uL (4.8-10.8)
[2025-06-18 17:45] LABS: Alanine Aminotransferase 42 U/L (0-31); Albumin Level 2.6 g/dL (3.5-5.0); Alkaline Phosphatase 132 U/L (39-117); Anion Gap 12 (12-20); Aspartate Amino Transferase 194 U/L (5-31); Blood Urea Nitrogen 6 mg/dL (9-16); Calcium 8.1 mg/dL (8.4-10.2); Carbon Dioxide 25 mmol/L (22-29); Chloride 96 mmol/L (96-108); Estimated Glomerular Filt Rate > 60; Potassium 4.2 mmol/L (3.3-5.1); Sodium 129 mmol/L (135-145); Total Protein 8.8 g/dL (6.5-8.0)
[2025-06-18 18:49] LABS: Free T4 (Free Thyroxine) 0.90 ng/dL (0.71-1.85)
[2025-06-19 08:17] LABS: HBS Num1 1.00 mIU/mL (0-7.99); HBc Num1 0.13 S/CO (0.00-0.79); HBsAGNum1 0.50 S/CO (0.00-0.99); Hepatitis B Surface Antigen Negative (Negative); ~HepC Num1 0.27 S/CO (0.00-0.79); ~Hepatitis B Surface Antibody NONREACTIVE (Nonreactive); ~Hepatitis C Antibody Nonreactive (Nonreactive)
== END 2025-06-18 15:30 | disposition home or self-care (01) ==
LOC: HO.LAB 15:29
PROVIDERS: PCP Internal Medicine; Visit Provider Internal Medicine
DX: I10 Essential (primary) hypertension (principal); R73.09 Other abnormal glucose; E03.9 Hypothyroidism, unspecified; R79.89 Other specified abnormal findings of blood chemistry
CPT/HCPCS: 36415; 80053; 83036; 84439; 84443; 85025; 86704; 86706; 86803; 87340; 99202

== ENCOUNTER 2025-06-18 15:29 | Outpatient (AMB) | payer OTHER, SELFPAY ==
--- NOTE | 2025-06-18 15:31 | A.OFFPC_ITS ---
Vital Signs 06/18/25 15:33 06/18/25 15:37 Height 4 ft 10 in Weight 115 lb BMI 24.0 BP 140/72 H Blood Pressure Location Lt brachial Position Sitting Respiration 17 Pulse 50 Pulse Source Pulse Oximeter Temp 97.5 F Temp Source Temporal Artery Scan Pulse Oximetry (%) 99 Oxygen Delivery Method Room Air Intake Visit Reasons: Routine / Dr Roberts Nozzle And Sleeve Worker Required: No Allergies No Known Allergies Allergy (Verified 06/18/25 15:31) Tobacco use date assessed: 06/18/25 HPI HPI Comments History of Present Illness Details The patient is a 49 year old female with a past medical history of hypertension, GERD, hypothyroid, elevated LFTs, lupus, alcohol hepatitis presenting for follow up CV: on coreg 3.125mg twice daily. Denies chest pain, exertional dyspnea. Hypothyroid: On levothyroxine 200mg daily. Reports compliance with medication. GERD: on omeprazole. History of ETOH use, ?cirrhosis. Last labs with Lupus: She has been on chronic prednisone. Has not been following with rheumatology. ROS CONSTITUTIONAL: Denies weight loss, fever and chills. HEENT: Denies changes in vision and hearing. RESPIRATORY: Denies SOB and cough. CV: Denies palpitations and CP GI: Denies abdominal pain, nausea, vomiting and diarrhea. : Denies dysuria and urinary frequency. MSK: Denies new myalgia and joint pain. SKIN: Denies rash and pruritus. NEUROLOGICAL: Denies headache PSYCHIATRIC: Denies recent changes in mood. PHYSICAL EXAM: GENERAL: Alert and oriented x 3. NAD EYES: EOMI. Anicteric. HENT: Moist mucous membranes. No scleral icterus. No cervical lymphadenopathy. LUNGS: Clear to auscultation bilaterally. CARDIOVASCULAR: Regular rate and rhythm. No murmur. No JVD. ABDOMEN: Soft, non-tender +bs EXTREMITIES: No edema. Non-tender. SKIN: No rashes or lesions. Warm. NEUROLOGIC: No focal neurological deficits. CN II-XII grossly intact PSYCHIATRIC: Cooperative. Appropriate mood and affect [facility] Medical History Alcohol abuse Cirrhosis Hypertension Asthma Hypothyroid Lupus Surgical History H/O hand surgery Family History Other No family history of coronary artery disease Social History Alcohol intake: current Alcohol intake frequency: a few times a week Alcohol type: beer and hard liquor Comment: transferred to [place] Patient Tobacco Use Status: Former Tobacco user e-Cigarette/Vaping Use: Never Used Substance Use Type: Marijuana service: No Current occupational status: employed Questionnaire AUDIT C Alcohol Use Questionnaire (AUDIT-C) 1. How often do you have a drink containing alcohol?: Never Total Score: 0 Physical exam (Primary Care) Vital Signs: Last Vital Signs Temp 97.5 F 06/18/25 15:37 Pulse 50 06/18/25 15:37 Resp 17 06/18/25 15:37 BP 140/72 H 06/18/25 15:37 Pulse Ox 99 06/18/25 15:37 Oxygen Delivery Method Room Air 06/18/25 15:37 BMI result Body Mass Index 24.0 Tobacco/Smoking Status: Tobacco use Status Tobacco use date assessed 06/18/25 06/18/25 15:38 Patient Tobacco Use Status Former Tobacco user 06/18/25 15:38 e-Cigarette/Vaping Use Never Used 06/18/25 15:38 Coding Level of Care Code New Pt Level 4 (05308) Complex EM visit Add On G2211 Diagnoses Primary hypertension I10 Hypertension type: primary hypertension Elevated glucose R73.09 Hypothyroidism, unspecified type E03.9 Hypothyroidism type: unspecified Assessment & Plan Assessment & Plan (1) Hypertension: Code(s): I10 - Essential (primary) hypertension Category: Medical Qualifiers: Hypertension type: primary hypertension Qualified Code(s): I10 - Essential (primary) hypertension (2) Elevated glucose: Code(s): R73.09 - Other abnormal glucose Category: Medical (3) Hypothyroid: Code(s): E03.9 - Hypothyroidism, unspecified Category: Medical Qualifiers: Hypothyroidism type: unspecified Qualified Code(s): E03.9 - Hypothyroidism, unspecified Plan 49 year old female to establish care Past medical, surgical, social reviewed Update labs Mammo ordered Needs colonoscopy, GI evaluated. Orders: Orders Complete Blood Count Auto Diff 06/18/25 E03.9 - Hypothyroidism, unspecified, I10 - Essential (primary) hypertension, R79.89 - Other specified abnormal findings of blood chemistry Hemoglobin A1c 06/18/25 R73.09 - Other abnormal glucose, R79.89 - Other specified abnormal findings of blood chemistry Hepatitis B Surface Antigen 06/18/25 R79.89 - Other specified abnormal findings of blood chemistry Hepatitis B Surface Antibody 06/18/25 R79.89 - Other specified abnormal findings of blood chemistry Hepatitis C Antibody Reflex 06/18/25 R79.89 - Other specified abnormal findings of blood chemistry MM tomosynthesis screening BI 06/18/25 Z12.31 - Encounter for screening mammogram for malignant neoplasm of breast US abdomen comp w elastography Today K74.60 - Unspecified cirrhosis of liver, R79. - Other specified abnormal findings of blood chemistry Comprehensive Met. Panel 06/18/25 E03.9 - Hypothyroidism, unspecified, I10 - Essential (primary) hypertension, R79.89 - Other specified abnormal findings of blood chemistry TSH reflex Free T4 06/18/25 E03.9 - Hypothyroidism, unspecified, I10 - Essential (primary) hypertension, R79.89 - Other specified abnormal findings of blood chemistry Hepatitis B Core Antibody 06/18/25 R79.89 - Other specified abnormal findings of blood chemistry Referrals Cologuard Test Z12.11 - Encounter for screening for malignant neoplasm of colon, Z12.12 - Encounter for screening for malignant neoplasm of rectum Rheumatology Referral M32.9 - Systemic lupus erythematosus, unspecified Gastroenterology Referral R79.89 - Other specified abnormal findings of blood chemistry, Z12.11 - Encounter for screening for malignant neoplasm of colon Medications: New levothyroxine 200 mcg PO DAILY 90 tabs 3RF
--- OUTSIDE RECORDS SUMMARY | 2025-06-18 15:32 | XMS_ITS | Patient Health Record ---
Author Organization [facility] Address [address] [place] [address] Care Team Providers Care Mechanic Helper Name Role Phone Armando (RETIRED) Damián OCASIO Primary Care Provide r Unavailable Rene Barkley Jr Unavailable Reason For Referral No Information Medications Medication SIG (Take, Route, Fr equency, Duration) Notes Start Date End Date Status Omeprazole 40 MG TAKE 1 CAPSULE BY MO UTH EVERY DAY for 90 Active Plan Of Treatment No Information Insurance Providers Payer Name Payer Address Payer Phone Subscriber Number Group Number Insured Name Patient Relationship to Insured Coverage Start Date Coverage End Date [facility] [address] [place] [address] [phone] [id number] STACEY TRIMBLE Self - patient is the insured
--- OUTSIDE RECORDS SUMMARY | 2025-06-18 15:32 | XMS_ITS ---
Author Name [facility] Organization Unknown Encounters Encounter Type Encounter Reason Primary Diagnosis Location Date Inpatient Poisoning by 4-aminophenol derivatives, accidental (unintentional), initial encounter [facility] 08/17/2022 Care Team Organization Name Specialty Phone Email Start Date End Da lyle [facility]ERE[facility] Primary Care 08/17/20222021 [facility] 08/17/2022
--- OUTSIDE RECORDS SUMMARY | 2025-06-18 15:32 | XMS_ITS | Clinical Summary ---
Author Organization [facility] Address [address] [place] [address] Care Team Providers Care Rubber Insulator Name Role Phone Adryan Jones MD Primary Care Provider [phone] Allergies No known active allergies Medications albuterol (PROVENTIL HFA; VENTOLIN HFA) 108 (90 Base) MCG/ACT inhalerIndicatio ns:Tylenol overdose, accidental or unintentional, initial encounter Inhale 2 puffs 4 times daily (every 6 hours) as needed for wheezing or shortness of breath. 1 each 2 Active carvedilol (COREG) 3.125 MG tabletIndication s:Tylenol overdose, accidental or unintentional, initial encounter Take 1 tablet (3.125 mg total) by mouth 2 (two) times a day with meals. 60 tablet 2 Active folic acid (FOLVITE) 1 MG tabletIndication s:Tylenol overdose, accidental or unintentional, initial encounter Take 1 tablet (1 mg total) by mouth daily. Do not start before August 22, 2022. 30 tablet 2 Active hydrALAZINE (APRESOLINE) 10 MG tabletIndication s:Tylenol overdose, accidental or unintentional, initial encounter Take 1 tablet (10 mg total) by mouth every 12 (twelve) hours around the clock. 60 tablet 2 Active levothyroxine (SYNTHROID, LEVOTHROID) 200 MCG tabletIndication s:Tylenol overdose, accidental or unintentional, initial encounter Take 1 tablet (200 mcg total) by mouth daily on an empty stomach. Do not start before August 22, 2022. 30 tablet 2 Active PANTOprazole (PROTONIX) 40 MG EC tabletIndication s:Tylenol overdose, accidental or unintentional, initial encounter Take 1 tablet (40 mg total) by mouth daily. Do not start before August 22, 2022. 30 tablet 2 Active predniSONE (DELTASONE) 2.5 MG tabletIndication s:Tylenol overdose, accidental or unintentional, initial encounter Take 3 tablets (7.5 mg total) by mouth every morning with breakfast. With food. Do not start before August 22, 2022. 90 tablet 2 Active thiamine mononitrate (VITAMIN B-1) 100 MG tabletIndication s:Tylenol overdose, accidental or unintentional, initial encounter Take 1 tablet (100 mg total) by mouth daily. Do not start before August 22, 2022. 30 tablet 2 Active Active Problems Problem Noted Date Diagnosed Date Tylenol overdose, accidental or unintentional, initial encounter 08/17/2022 Dyspepsia 08/17/2022 Social History Tobacco Use Types Packs/Day Years Used Date Smoking Tobacco: Never Smokeless Tobacco: Never AUDIT-C Answer Date Recorded Q1: How often do you have a drink containing alcohol? 4 or more times a week 08/17/2022 Q2: How many drinks containi ng alcohol do you have on a typical day when you are drinking? 5 or 6 Q3: How often do you have si x or more drinks on one occasion? Daily or almost daily 08/17/2022 Comments No Sex and Gender Information Value Date Recorded Sex Assigned at Not on file Legal Sex Female 6:46 PM EST Gender Identity Not on file Sexual Orientation Not on file Last Filed Vital Signs Vital Sign Reading Time Taken Comments Blood Pressure 110/70 08/21/2022 9:49 AM EDT Pulse 62 08/21/2022 9:54 AM EDT Temperature 37.1 C (98.8 F) 08/21/2022 8:00 AM EDT Respiratory Rate 20 08/21/2022 8:00 AM EDT Oxygen Saturation 99% 08/21/2022 8:00 AM EDT Inhaled Oxygen Concentration - - Weight 50.8 kg (112 lb) 08/17/2022 4:00 PM EDT Height 149.9 cm (4' 11 ) 08/17/2022 4:00 PM EDT Body Mass Index 22.62 08/17/2022 4:00 PM EDT Plan of Treatment Health Maintenance Due Date Last Done Comments HIV Screening 1988 DTaP/Tdap/Td Vaccines (1 - Tdap) 1994 Hepatitis B Vaccines (1 of 3 - 19+ 3-dose series) 1994 Pap Smear (Ages 21-65) 1996 Mammogram 2015 Colonoscopy 2020 COVID-19 Vaccine (1 - 2023-2 5 season) 2024 Influenza Vaccine 06/12/2025 Hepatitis C Virus Screening Completed 08/18/2022 Pneumococcal Vaccine: Pediat emiliano (0-5 Years) and At-Risk Patients (6 to 49 Years) Aged Out No longer eligible b ased on patient's age to complete this topic Procedures Procedure Name Priority Date/Time Associated Diagnosis Comments HEPATITIS PANEL, ACUTE Routine 08/18/2022 12:26 AM EDT from Last 3 Months or Most Recently Relevant to Health Maintenance Results * Hepatitis Panel, Acute (08/18/2022 12:26 AM EDT) Hepatitis A Antibody IgM Nonreactive Nonreactive S/CO 08/18/2022 12:04 PM EDT [facility] , [facility] Hepatitis B Core Antibody IgM Nonreactive Nonreactive 08/18/2022 12:04 PM EDT [facility] , [facility] Hepatitis B Surface Ag Screen Nonreactive Nonreactive 08/18/2022 12:04 PM EDT [facility] , [facility] Hepatitis C Antibody 0.20 0.00 - 0.79 S/CO ratio 08/18/2022 12:04 PM EDT [facility] , [facility] Hepatitis C Antibody Interpretation Nonreactive Nonreactive 08/18/2022 12:04 PM EDT [facility] , [facility] Hepatitis Interpretation: Results inconsistent with acute Hepatitis A, B or C Virus infection. 08/18/2022 12:04 PM EDT [facility] , [facility] Blood specimen (specimen) Serum specimen / Unknown 08/18/2022 12:26 AM EDT 08/18/2022 12:45 AM EDT us [facility] BLOOD ORDERABLES Fi nal Result [facility], [facility] [address] [place] [address] from Last 3 Months or Most Recently Relevant to Health Maintenance Insurance [employer] Advance Directives * Full Code (Latest Code Status on File) Date Activated Date Inactivated Comments 08/17/2022 4:01 PM Healthcare Agents on File Name Relationship Healthcare Agent Relationshi p Communication Yonatan Chavira Spouse 4. Next of Kin ( Spouse, Adult Child, Parent, Adult Sibling, Grandparent) Care Teams Rubber Insulator Relationship Specialty Start Date End Date Adryan Jones MD [address] [place] [address] PCP - General Medicine Hospitalist 08/17/22
[2025-06-18 15:33] VITALS: BMI 24.0
[2025-06-18 15:37] VITALS: BP 140/72; PULSE 50; RESP 17; TEMP 36.4; O2SAT 99
== END 2025-06-18 16:08 | disposition home or self-care (01) ==
LOC: HO.HMCHD 15:30
PROVIDERS: PCP Internal Medicine; Visit Provider Internal Medicine
DX: I10 Essential (primary) hypertension (principal); R73.09 Other abnormal glucose; E03.9 Hypothyroidism, unspecified

== ENCOUNTER 2025-07-07 15:45 | Outpatient (REF) | payer OTHER, SELFPAY ==
--- OUTSIDE RECORDS SUMMARY | 2025-06-24 04:40 | XMS_ITS ---
Author Organization [facility] Address [address] [place] [phone] Care Team Providers Care Conservation Scientist Name Role Phone Luz Bryan M.D. Primary Care Provider Rene Davis Jr REASON FOR VISIT cirrrhosis of the liver Encounters Encounter Location Date Provider Diagnosis [facility] Outpatient [address] [place] [phone] 06/24/2025 Rene Barkley Jr Plan Of Treatment No Information Progress Notes * TRIMBLECLAUDE TrianaNEELAMALEXANDRADOB:[birth year] (49 yo F)Acc No.[id number]:06/24/2025 Progress Notes Patient: STACEY CAMPBELL Provider: Ekateirna Barkley MD :1975 A ge:49 Y S ex:Female Date:06/24/2025 Address:[address] [place], [place] [id number] Pcp:Luz Bryan M.D. Subjective: * Chief Complaints: * 1 . Cirrrhosis of the liver. * Medical History: Objective: * Vitals: Assessment: Plan: * Treatment: * * The named appointment provid er may or may not be the originator of this progress note, and it is not deemed complete until electronically signed by the appointment provider. Sign off status: Pending * Provider: Ekaterina Barkley MD Date: 06/24/2025 Generated for Jessica weathers/Agueda/Niravitting on: 07/07/2025 04:33 PM EDT
--- OUTSIDE RECORDS SUMMARY | 2025-07-06 09:55 | XMS_ITS ---
Author Organization [facility] Address [address] [place] [phone] Care Team Providers Care Promotion Officer Name Role Phone Luz Bryan M.D. Primary Care Provider Rene Davis Jr REASON FOR VISIT cirrhosis of the liver Encounters Encounter Location Date Provider Diagnosis [facility] [address] [place] [phone] 07/06/2025 Rene Barkley Jr Plan Of Treatment No Information Progress Notes * TRIMBLESTACEY YODERDOB:[birth year] (49 yo F)Acc No.[id number]:07/06/2025 Progress Notes Patient: STACEY CAMPBELL Provider: Ekaterina Barkley MD :1975 A ge:49 Y S ex:Female Date:07/06/2025 Address:[address] [place], [place] [id number] Pcp:Luz Bryan M.D. Subjective: * Chief Complaints: * 1 . Cirrhosis of the liver. * Medical History: Objective: * Vitals: Assessment: Plan: * Treatment: * * The named appointment provid er may or may not be the originator of this progress note, and it is not deemed complete until electronically signed by the appointment provider. Sign off status: Pending * Provider: Ekaterina Barkley MD Date: 07/06/2025 Generated for Jessica weathers/Agueda/Niravitting on: 07/07/2025 04:33 PM EDT
--- NOTE | ~2025-07-07 | MM_ITS ---
EXAMINATION: MM SCREENING DIGITAL BREAST TOMOSYNTHESIS, BILATERAL CLINICAL INFORMATION: Screening. Asymptomatic. COMPARISON: None. This is a baseline study. TECHNIQUE: Digital breast tomosynthesis is performed in mediolateral oblique and craniocaudal views along with computer-aided detection (CAD). FINDINGS: BREAST COMPOSITION: The breasts are heterogeneously dense, which may obscure small masses (ACR BI-RADS breast composition Category c). BILATERAL BREASTS: No significant masses, suspicious calcifications or other abnormalities are seen in either breast. MM/MM tomosynthesis screening BI IMPRESSION: BILATERAL BREASTS: Negative, no mammographic evidence of malignancy. Normal interval follow-up is recommended in 12 months. ASSESSMENT: BI-RADS 1 - Negative RECOMMENDATION: Routine annual mammography screening. FOLLOW-UP: 1 year F/U This examination should not preclude the clinical evaluation of a suspicious palpable abnormality. This patient's information was entered into a reminder system with a target due date for their next mammogram. Electronically signed by: Tanesha Watson MD 07/11/2025 12:13 PM EDT
--- OUTSIDE RECORDS SUMMARY | 2025-07-07 16:33 | XMS_ITS | Clinical Summary ---
Author Organization [facility] Address [address] [place] [address] Care Team Providers Care Wood Model Maker Name Role Phone Adryan Jones MD Primary Care Provider [phone] Allergies No known active allergies Medications albuterol [...] Nonreactive Nonreactive S/CO 08/18/2022 12:04 PM EDT [facility] Hepatitis B Core Antibody IgM Nonreactive Nonreactive 08/18/2022 12:04 PM EDT [facility] Hepatitis B Surface Ag Screen Nonreactive Nonreactive 08/18/2022 12:04 PM EDT [facility] Hepatitis C Antibody 0.20 0.00 - 0.79 S/CO ratio 08/18/2022 12:04 PM EDT [facility] Hepatitis C Antibody Interpretation Nonreactive Nonreactive 08/18/2022 12:04 PM EDT [facility] Hepatitis Interpretation: Results inconsistent with acute Hepatitis A, B or C Virus infection. 08/18/2022 12:04 PM EDT [facility] Blood specimen (specimen) Serum specimen / Unknown 08/18/2022 12:26 AM EDT 08/18/2022 12:45 AM EDT us [facility] BLOOD ORDERABLES Fi nal Result [facility], [facility] [address] [place] [address] from Last 3 Months or Most Recently Relevant to Health Maintenance Insurance [employer] Advance Directives * Full Code (Latest Code Status on File) Date Activated Date Inactivated Comments 08/17/2022 4:01 PM Healthcare Agents on File Name Relationship Healthcare Agent Relationshi p Communication Yonatan Chavira Spouse 4. Next of Kin ( Spouse, Adult Child, Parent, Adult Sibling, Grandparent) Care Teams Wood Model Maker Relationship Specialty Start Date End Date Adryan Jones MD [address] [place] [address] PCP - General Medicine Hospitalist 08/17/22
--- OUTSIDE RECORDS SUMMARY | 2025-07-07 16:33 | XMS_ITS | Patient Health Record ---
Author Organization [facility] Address [address] [place] [phone] Care Team Providers Care Holiday Detector Operator Name Role Phone Luz Bryan M.D. Primary Care Provider Unavail able Rene Barkley Jr Unavailable Reason For Referral No Information Medications Medication SIG (Take, Route, Fr equency, Duration) Notes Start Date End Date Status Omeprazole 40 MG TAKE 1 CAPSULE BY MO UTH EVERY DAY for 90 Active Encounters Encounter Location Date Provider Diagnosis [facility] [address] [facility] [address] [place] [phone] 07/06/2025 Rene Barkley Jr Plan Of Treatment No Information Insurance Providers Payer Name Payer Address Payer Phone Subscriber Number Group Number Insured Name Patient Relationship to Insured Coverage Start Date Coverage End Date [facility] [employer] [facility] [address] [address] [place], [place] [id number] STACEY TRIMBLE Self - patient is the insured
== END 2025-07-07 15:46 | disposition home or self-care (01) ==
LOC: HO.MAMMO 15:45
PROVIDERS: PCP Internal Medicine; Visit Provider Internal Medicine
DX: Z12.31 Encounter for screening mammogram for malignant neoplasm of breast (principal)
CPT/HCPCS: 77063; 77067

== ENCOUNTER → 2025-07-07 16:00 | Outpatient (BNV) | payer OTHER, SELFPAY | PROVIDERS: PCP Internal Medicine; Visit Provider Radiology Body Imaging | DX: Z12.31 Encounter for screening mammogram for malignant neoplasm of breast (principal) | CPT/HCPCS: 77063; 77067 ==